=== PATIENT | female | born 1940 | race Caucasian/White ===

== ENCOUNTER 2017-10-31 05:48 | Inpatient (IN) | payer OTHER ==
[~2017-10-31] VITALS: Ht 162.6 cm; Wt 49.9 kg
[~2017-10-31 05:48] MED LIST: ACETAMINOPHEN-1 EAC1 PO; ACETAMINOPHEN325 M1 PO; ACETAMINOPHEN650 M5 PO; AMLODIPINE BESY10 MG PO; ASPIR 8181 M1 PO; ASPIRIN EC81 M1 PO; AUGMENTIN 875875 MG PO; CARVEDILOL3.125 MG PO; CELEXA 20 MG TA20 MG PO; COLACE100 MG PO; COREG6.25 MG PO; COUMADIN 1MG TAB1 M1 PO; COZAAR 50 MG TA50 M1; COZAAR 50 MG TA50 MG PO; ELIQUIS2.5 MG PO; EXCEDRIN CAPLE1 EACH PO; FERRO-TIME325 MG PO; GAS RELIEF40 MG/0.6 PO; IRON325 PO; LEXAPRO20 MG PO; LISINOPRIL5 MG PO; NORVASC; NORVASC2.5 MG PO; OMEPRAZOLE 20 M20 M1 PO; PACERONE 200 M200 M1 PO; PERCOCET 5-3251 EACH PO; POTASSIUM CHLO10 ME1 PO; POTASSIUM CHLORIDE; POTASSIUM99 M1 PO; PREDNISONE 10 M10 M1 PO; SIMETHICON CHEW80 MG PO; TRAZODONE; TRAZODONE 50 MG PO; VICKS NYQUIL C236 ML PO; VITAMIN D 5050000 I1 PO; VITAMIN D400 UNI1 PO; VITAMIN E400 UNIT PO; [UNRECOGNIZED DRUG - OTHER] PO
[2017-10-31 05:50] VITALS: BP 189/84
[2017-10-31] MEDS ORDERED: NORVASC2.5 MG PO (06:36)
[2017-10-31] MEDS ORDERED: OMEPRAZOLE 20 M20 M1 PO (06:38)
[2017-10-31 06:42] LABS: HEMATOCRIT 36.5 % (37.0-47.0); HEMOGLOBIN 12.1 gm/dL (12.0-15.0); MCH 28.3 pg (26.0-34.0); MCHC 33.2 g/dL (28.0-37.0); MPV 7.5 fl. (7.2-11.1); NUCLEATED RBCS 0 /100WBC; PLATELET COUNT* 131 thou/uL (150-400); RBC 4.29 mil/uL (4.20-5.00); RDW-CV 14.1 % (10.5-14.5); WBC 7.4 thou/uL (4.0-11.0)
[2017-10-31 06:52] LABS: INFLUENZA A ANTIGEN None Detected (None Detect); INFLUENZA B ANTIGEN None Detected (None Detect)
[2017-10-31 06:55] LABS: ANION GAP 8 mmol/L (7-16); BUN 16 mg/dL (7-18); CALCIUM 8.4 mg/dL (8.5-10.1); CHLORIDE 101 mmol/L (98-107); CO2 33 mmol/L (21-32); GLUCOSE 120 mg/dL (70-99); POTASSIUM 3.6 mmol/L (3.5-5.1); SODIUM 142 mmol/L (136-145)
[2017-10-31 07:01] LABS: ALBUMIN 3.5 g/dL (3.4-5.0); ALKALINE PHOSPHATASE 76 U/L (46-116); NT-PRO BRAIN NAT PEPTIDE 761 pg/mL (<300); SGOT 24 U/L (15-37); SGPT 23 U/L (30-65); TOTAL BILIRUBIN 0.4 mg/dL (<0.1-1.0); TOTAL PROTEIN 6.5 g/dL (6.4-8.2); TROPONIN-I LEVEL <0.06 ng/mL (<0.06)
[2017-10-31 07:15] LABS: ABSOLUTE EOSINOPHILS 0.1 thou/uL (0.0-0.7); ABSOLUTE LYMPHOCYTES 0.5 thou/uL (0.8-5.3); ABSOLUTE MONOCYTES 0.4 thou/uL (0.0-1.2); ABSOLUTE NEUTROPHILS 6.4 thou/uL (1.6-8.1); PLATELET ESTIMATE ADEQUATE
[2017-10-31 07:45] LABS: URINE BILIRUBIN NEGATIVE (Negative); URINE BLOOD 1+ (Negative); URINE CLARITY SL CLOUDY; URINE COLOR YELLOW; URINE GLUCOSE-RANDOM NEGATIVE (Negative); URINE KETONES NEGATIVE (Negative); URINE LEUKOCYTES-REFLEX 2+ (Negative); URINE NITRITE-REFLEX NEGATIVE (Negative); URINE PROTEIN NEGATIVE (Negative); URINE UROBILINOGEN 0.2 E.U./dl (0.2-1.0)
[2017-10-31 07:56] LABS: BACTERIA-REFLEX >30 Many /HPF (None Seen); CASTS None Seen /LPF (None Seen); CRYSTALS None Seen /LPF (None Seen); SQUAMOUS NONE SEEN /LPF (0-3); URINE RBC None Seen /HPF (0-2); URINE WBC-REFLEX >25 Many /HPF (0-5); WBC CLUMPS Moderate (None Seen)
--- NOTE | 2017-10-31 09:01 | NUR ---
pt returned to ed and returned toreconnectedto monitor
[2017-10-31 09:07] VITALS: BP 143/44
--- NOTE | 2017-10-31 09:20 | NUR ---
PATIENT ARRIVED ON UNIT AT 0920 FROM ED. ALERT AND ORIENTED X4. ADMISSION ASSESSMENT AND HISTORY COMPLETED AND CHARTED. VSS ON 2 LITERS 02. PATIENT HAS A PRODUCTIVE COUGH BUT DENIES ANY PAIN OR NAUSEA THIS SHIFT. IV SOLUMEDROL ADMINISTERED AND BREATHING TREATMENTS ADMINISTERED ORDERED. PATEINT HAS LOTS OF SUPPORTIVE FAMILY AT BEDSIDE TODAY AND IS CURRENTLY RESTING COMFORTABLY IN BED. HOURLY ROUNDS HAVE BEEN MAINTAINED. CALL LIGHT IS WITHIN REACH. NURSING WILL CONTINUE TO MONITOR.
[2017-10-31 09:30] VITALS: BP 150/69
--- NOTE | 2017-10-31 09:45 | EKG ---
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 Therapy: : 1940 Requested By: Beatris Palomares Order Number: [id number] MD: Red Rodriguez Measurements Intervals Savage Rate: 88 P: 0 OH: 152 QRS: -58 QRSD: 97 T: 84 QT: 387 QTc: 469 Interpretive Statements Sinus rhythm septal q waves noted Atrial premature complexes 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
[2017-10-31 15:44] VITALS: BP 144/73
[2017-10-31 21:15] VITALS: BP 169/75
[2017-10-31 23:46] VITALS: BP 147/66
[2017-11-01 03:30] VITALS: BP 184/92
[2017-11-01 04:41] LABS: ABSOLUTE LYMPHOCYTES 0.5 thou/uL (0.8-5.3); ABSOLUTE MONOCYTES 0.1 thou/uL (0.0-1.2); ABSOLUTE NEUTROPHILS 5.5 thou/uL (1.6-8.1); BASOPHILS 0.1 %; HEMATOCRIT 34.9 % (37.0-47.0); HEMOGLOBIN 11.8 gm/dL (12.0-15.0); LYMPHOCYTES 7.5 %; MCH 28.3 pg (26.0-34.0); MCHC 33.9 g/dL (28.0-37.0); MCV 83.6 fL (80.0-100.0); MONOCYTES 1.5 %; MPV 8.4 fl. (7.2-11.1); NUCLEATED RBCS 0 /100WBC; PLATELET COUNT* 135 thou/uL (150-400); POLYS 90.9 %; RBC 4.17 mil/uL (4.20-5.00); RDW-CV 13.9 % (10.5-14.5)
[2017-11-01 05:02] LABS: CALCIUM 8.9 mg/dL (8.5-10.1); CREATININE 0.9 mg/dL (0.6-1.3); MAGNESIUM 1.6 mg/dL (1.8-2.4); POTASSIUM 3.5 mmol/L (3.5-5.1)
--- NOTE | 2017-11-01 05:04 | NUR ---
PATIENT ALERT AND ORIENTED. ELEVATED BLOOD PRESSURE. HYDRAZALINE GIVEN, EFFECTIVE. ON 2L OF OXYGEN. UP SBA THE BATHROOM, GAIT UNSTEADY. TYLENOL GIVEN FOR A HEADACHE. PRODUCTIVE COUGH. SLEPT COMFORTABLY THROUGH THE NIGHT. HOURLY HOURLY ROUDNS. BED ALARM IN USE. NURSING WILL CONTINUE TO MONITOR.
[2017-11-01 05:20] VITALS: BP 128/65
[2017-11-01 08:04] VITALS: BP 157/68
--- NOTE | 2017-11-01 11:00 | NUR ---
SPOKE WITH PT. SHE WAS GRIMACING AND KEPT HER EYES CLOSED,ALTHOUGH ANSWERED MY QUETIONS. DAUGHTER SAID SHE WAS SOA. SHE LIVES WITH HER DAUGHTER,SANTANA AND SANTANA'S . SHE HAS HER OWN BEDROOM. SHE DOES NOT USE O2 OR ANY OTHER DME AT HOME. DAUGHTER SAID I FEEL LIKE YOU NEED TO WALK WITH A WALKER. PT.STATED I HAVE TOO MANY KNICK KNACKS IN MY ROOM AND A WALKER WOULD NOT FIT,ILL WALK WITH A CANE.SHE IS ALONE DURING THE DAY WHILE FAMILY WORKS. STILL DRIVES, ALTHOUGH 'MY KIDS DONT WANT ME TO.' DECLINES HOME HEALTH AT DISCHARGE. SHE SAID SHE DID NOT LIKE PEOPLE COMING INTO THE HOUSE. CM WILL FOLLOW.
[2017-11-01 11:56] VITALS: BP 152/61
[2017-11-01 15:58] VITALS: BP 163/59
--- NOTE | 2017-11-01 16:30 | NUR ---
ASSUMED CARE OF PATIENT AFTR MORNING REPORT. ALERT AND ORIENTED X4. VSS ON 2 LITERS 02. FLUIDS AND ANTIBIOTICS INFUSING ORDERED. RT HAS BEEN GIVING BREATHING TREATMENTS ORDERED. PATIENT HAS HAD SUPPORTIVE FAMILY AT BEDSIDE TODAY. PATIENT HAS HAD SOME COMPLAINTS OF A HEADACHE AND REQUESTED EXCEDRINE WHICH THE PHARMACY DOES NOT CARRY, TRAMADOL WAS ORDERED INSTEAD AND HAS GREGORIA SUCCESSFUL IN CONTROLLING HER HEADACHE PAIN. PATIENT IS RESTING COMFORTABLY IN BED AT THIS TIME. CALL LIGHT IS WITHIN REACH. HOURLY ROUNDS MAINTAINED. NURSING WILL CONTINUE TO MONITOR.
[2017-11-01 20:35] VITALS: BP 186/90
[2017-11-02 00:01] VITALS: BP 116/63
[2017-11-02 04:18] LABS: ABSOLUTE LYMPHOCYTES 0.7 thou/uL (0.8-5.3); ABSOLUTE MONOCYTES 0.7 thou/uL (0.0-1.2); ABSOLUTE NEUTROPHILS 9.1 thou/uL (1.6-8.1); HEMATOCRIT 32.8 % (37.0-47.0); LYMPHOCYTES 6.9 %; MCH 28.3 pg (26.0-34.0); MCHC 33.4 g/dL (28.0-37.0); MCV 84.6 fL (80.0-100.0); MONOCYTES 6.5 %; MPV 8.1 fl. (7.2-11.1); NUCLEATED RBCS 0 /100WBC; PLATELET COUNT* 145 thou/uL (150-400); POLYS 86.6 %; RBC 3.88 mil/uL (4.20-5.00); RDW-CV 14.2 % (10.5-14.5); WBC 10.5 thou/uL (4.0-11.0)
--- NOTE | 2017-11-02 04:22 | NUR ---
PATIENT ALERT AND ORIENTED, FORGETFUL AT TIMES. HYDRAZALINE GIVEN X 1, EFFECTIVE. OTHER VITALS STABLE. ON 2L OF OXYGEN. UP SBA TO BATHROOM. PRODUCTIVE COUGH. SOB WITH EXERTION. FLUIDS INFUSING PER ORDER. HOURLY ROUNDS. BED ALARM IN USE. NURSING WILL CONTINUE TO MONITOR.
[2017-11-02 05:43] LABS: CALCIUM 8.4 mg/dL (8.5-10.1); CREATININE 0.8 mg/dL (0.6-1.3); POTASSIUM 3.8 mmol/L (3.5-5.1); TOTAL BILIRUBIN 0.2 mg/dL (<0.1-1.0)
[2017-11-02 05:44] LABS: ALBUMIN 2.9 g/dL (3.4-5.0); TOTAL PROTEIN 5.5 g/dL (6.4-8.2)
[2017-11-02 08:00] VITALS: BP 172/87
[2017-11-02 10:35] VITALS: BP 125/54
--- NOTE | 2017-11-02 12:51 | CON ---
[facility] [address] [place] [address] CONSULTATION Name: LAMONT STEVEN Room: [address] IN M.R.#: [id number] Admission: 10/31/17 Attend Phys: Oleg Oliver MD Discharge: Date of : 36 Report #: [id number] THIS REPORT FOR: //name// CC: Oleg Jose DATE OF SERVICE: 11/02/2017 TYPE OF REPORT: Pulmonary consultation. IDENTIFICATION DATA: A 77-year-old female. ATTENDING PHYSICIAN: Oleg Oliver M.D. INDICATION FOR CONSULTATION: Right lower lobe infiltrate, possible lung mass. HISTORY OF PRESENT ILLNESS: The patient is a 77-year-old female who has had prior COPD at home. She has not been oxygen or steroid dependent, has refused and not really used any inhalers or nebulizers in the past. A 3-4 day history of increasing cough, fever, chills and wheezing. She has not traveled anywhere, but she has had ill contacts over the last couple of days. The patient does have problems with drinking liquids, appears intermittently aspirating with liquids, does not perform a chin tuck. She has always been thin and frail according to the daughter and states her weight has been stable at about 110 pounds. Normally, she does not have much of a cough at home. She denies any hemoptysis or chest pain. She still states she is short of breath now and she gets up and walks. PAST MEDICAL HISTORY: COPD, again not oxygen or steroid dependent; some generalized weakness; pneumonia currently and bronchitis. She was treated with Augmentin, I think, by Dr. Michelle Jose, her primary care physician. ALLERGIES: She has no known medical allergies. MEDICATIONS: Her other outpatient medications included omeprazole 20 mg daily, trazodone 50 mg at bedtime, vitamin E 400 units daily, Lexapro 20 mg daily, Norvasc 2.5 mg daily, carvedilol 6.25 mg b.i.d. and aspirin 81 mg daily. She was on a prednisone taper 10 mg a day and then on Augmentin and she has finished both of those. Lisinopril has been discontinued because of the cough. Currently in the hospital, she is on prednisone 40 mg daily and Rocephin and Zithromax. PAST SURGICAL HISTORY: She has had tonsillectomy, aortic valve repair 07/31/2013, left side lumpectomy for benign lesions, impacted about in July 2013, remote history [place] [address] CONSULTATION Name: TENISHALAMONT J Room: [address] IN ..#: [id number] Admission: 10/31/17 Attend Phys: Oleg Oliver MD Discharge: Date of : 36 Report #: [id number] SOCIAL HISTORY: She is a 25-zygf-eutv smoker. She smoked for 30 years, probably from the age of 18 to the age of 48 and she quit about 28 years ago. She was 2 packs a day, has a 30-sxhx-pnvu history of smoking. Denies any alcohol or illicit drug use. Lives at home with her and her daughter. Her adult daughter seems quite informed and involved with her care. FAMILY HISTORY: Negative for premature cardiopulmonary disease. REVIEW OF SYSTEMS: A 14-point review of systems: CONSTITUTIONAL: Denies any weight loss. Has had some fever and chills at home. RESPIRATORY: Cough with wheezing and COPD and dyspnea. CARDIOVASCULAR: She denies chest pain or palpitations. GASTROINTESTINAL: Some intermittent nausea and choking on liquids. GENITOURINARY: Has been negative. MUSCULOSKELETAL: Denies focal pain. ENDOCRINE: No diabetes or thyroid. LYMPHATIC: No bruising or bleeding. SKIN: No rashes or lesions. NEUROLOGICAL: Some weakness. PHYSICAL EXAMINATION: GENERAL: A 77-year-old female in mild distress on 2 liters. VITAL SIGNS: Stable. Blood pressure is 125/54 on no pressors, heart rate is 84, respirations were 20 and slightly labored. She has been afebrile, temperature is 36.4. She is 5 feet 3 inches tall, weight 50 kilograms or 110-112 pounds and her BMI is 19. HEENT: Mucous membranes are moist. NECK: No increase in jugular venous pressure. No cervical or supraclavicular adenopathy. CHEST: Shows posteriorly bibasilar rhonchi, crackles and expiratory wheeze, right lower lobe worse than left lower lobe. CARDIOVASCULAR: Shows regular rate and rhythm with a heart rate of 84. I do not hear any aortic outflow murmur. Previous median sternotomy scar noted. ABDOMEN: Soft, without masses or megaly. EXTREMITIES: No calf tenderness. No cyanosis, clubbing or edema. NEUROLOGICAL: Weak but intact. LABORATORY DATA: Influenza was negative. Hemoglobin is 11; white count is 10,500 this morning and platelet count 145,000. Normal differential. Sodium is 140, potassium is 3.8, BUN is 21, creatinine 0.8 and glucose is 109. LFTs within normal limits. Albumin is slightly low at 2.9. Lple-iax-PJB is slightly elevated at 2472. Serology is negative for influenza A or B swabs and were negative. Coags: Her D-dimer is only 1.3. [address] [address] CONSULTATION Name: LAMONT STEVEN Room: [address] IN M.R.#: [id number] Admission: 10/31/17 Attend Phys: Oleg Oliver MD Discharge: Date of : 36 Report #: [id number] IMPRESSION: 1. Right lower lobe pneumonia, could be related to aspiration with liquids. No evidence for lung carcinoma on the chest x-ray. She has a 9 mm right upper lobe nodule, which appears ill-defined. 2. Chronic obstructive pulmonary disease, probably moderate, needs better therapy as an outpatient. 3. Fatigue. 4. Hypertension. 5. Previous aortic valve replacement. PLAN: Continue therapy. She was on p.o. prednisone. I am going to add 6 doses of IV Solu-Medrol to see him get her out of her bronchospasm and add some oral albuterol tablets and oral montelukast. She may need home nebulizer treatments. No evidence of lung cancer at this time and I think it is all right lower lobe pneumonia, but she will certainly need a followup chest x-ray in a day or two and follow this up to completion. If not, she needs another CAT scan in 2 months to make sure that the lung bases are clear. If not, she may require outpatient fiberoptic bronchoscopy. Discussed this with the family, will need followup. Continue on current medical therapy as outlined above and hopefully, she will have some improvement, but she will probably need another 24-48 hours inpatient therapy. Thanks again for allowing us to participate in this lady's care. <ELECTRONICALLY SIGNED> By: Collins Peña MD 11/02/17 1251 [id number] [id number] Peña MD /nt
[2017-11-02 16:16] VITALS: BP 140/65
--- NOTE | 2017-11-02 16:17 | NUR ---
ASSUMED CARE OF PATIENT AFTER REPORT THIS MORNING. PATIENT AWAKE, ALERT, AND ORIENTED APPROPRIATELY. PHYSICAL ASSESSMENT COMPLETED AND CHARTED. COMPLAINED OF PAIN THIS SHIFT. GIVEN PRN AND SCHEDULED MEDICATIONS, SEE EMAR FOR DOCUMENTATION. VITAL SIGNS STABLE. OXYGEN SATURATION WITHIN NORMAL LIMITS ON 2 LPM PER NASAL CANULA. ATTEMPTED TO TITRATE TO ROOM AIR BUT WITH ACTIVITY OXYGEN IS NECESSARY. OXYGEN SATURATION DECREASES WITH ACTIVITY. TRANSFERS AND AMBULATES WITH ASSISTANCE FROM STAFF. USES CALL LIGHT APPROPRIATELY. PATIENT DENIES NEEDS AT THIS TIME. CALL LIGHT WITHIN REACH. NURSING WILL CONTINUE TO MONITOR.
[2017-11-02 20:00] VITALS: BP 177/90
[2017-11-03] VITALS: BP 136/59
--- NOTE | 2017-11-03 05:35 | NUR ---
ALERT AND ORIENTED X4. UP WITH STAND BY ASSIST TO BATHROOM. O2 SAT 85% ON ROOM AIR. O2 SAT 96% ON O2 AT 2L/NC. CONTINUES TO RECEIVE BREATHING TREATMENTS IV STERIODS AND IV ANTIBIODICS. CALL LIGHT WITHIN REACH. BED ALARM ON.
[2017-11-03 09:00] VITALS: BP 170/91
[2017-11-03 16:17] VITALS: BP 165/82
--- NOTE | 2017-11-03 20:57 | NUR ---
ASSUMED CARES OF PT AT 0700. PT IN BED, BED IN LOW LOCKED POSITION. CALL BUTTON AND PERSONAL ITEMS IN PT REACH. FALL PRECAUTIONS IN PLACE. PT A&O X4, VSS ON 2L O2, OCC. HYPERTENSIVE. AFEBRILE, PERRLA, NON PRODUCTIVE COUGH. PT UP SBA TO BATHROOM. PT VERY MODEST AND SHY. PT DENIES PAIN THIS SHIFT. LUNGS WHEEZY ON EXHALATION PER AUSCULTATION. SKIN INTACT, NO EDEMA NOTED. MEDS TAKEN WELL PO. POOR APPETITE AND NUTRITIONAL INTAKE. HOURLY ROUNDING COMPLETED. REPORT TO BAILING MACHINE OPERATOR FOR CONTINUED CARES. PT PROGRESSING TOWARDS GOAL. HR IRREGULAR/AFIB PER AUSCULTATION. CONSULTS PULMONARY. PT REMAINS STABLE AT SHIFT CHANGE.
[2017-11-03 21:00] VITALS: BP 172/71
[2017-11-04] VITALS: BP 148/61
--- NOTE | 2017-11-04 05:13 | NUR ---
ALERT AND ORIENTED X4. UP WITH STAND BY ASSISTANCE TO BATHROOM. ON SCHEDULED TRAMADOL. DENIES PAIN WHEN ASKED. REMAINS ON O2 AT 1L/NC TO KEEP O2 SAT 96%. LUNG SOUNDS COARSE WITH FAINT WHEEZES. CONTINUES TO RECEIVE BREATHING TREATMENTS AND IV ANTIBIODICS. CALL LIGHT WITHIN REACH.
[2017-11-04 08:06] VITALS: BP 195/89
--- NOTE | 2017-11-04 09:44 | NUR ---
ASSUMED CARES OF PT AT 0700 WITH SHIFT CHANGE REPORT. PT IN BED, BED IN LOW LOCKED POSITION. FALL PRECAUTIONS IN PLACE. PT A&O X4, VSS ON 1L O2 NC, OCC HYPERTENSIVE IN MORNINGS BEFORE MEDS. AFEBRILE, PERRLA, SKIN INTACT, UP SBA TO BATHROOM. LFA IV SALINE LOCKED, IV ABT TOLERATED, NO AVR. PT REPORTS HEADACHE THIS MORNING ROUNDS, PAIN MEDS ADMINISTERED, EFFECTIVENESS TO BE EVALUATED. PT REFUSES TO HAVE BM AT HOSPITAL, WANTS TO WAIT TILL SHE GOES HOME, DAY 5 NO BM, ABD SOUNDS ACITVE 4 QUAD. SOFT TO PALPATE, NO NAUSEA REPORTED. HOURLY ROUNDING CONTINIUES. HR IRREGULAR/AFIB, LUNGS COARSE/WHEEZES ON EXHALATION. O2 1L 97% THIS MORNING ROUNDS. PT PROGRESSING TOWARDS GOAL. WILL CONTINUE TO MONITOR PT PROGRESS AND STATUS.
[2017-11-04 15:43] VITALS: BP 166/93
[2017-11-04 20:00] VITALS: BP 185/82
--- NOTE | 2017-11-04 20:06 | NUR ---
this nurse assumes care of pt at 1930, pt is alert and oriented, visiting with family, pt complains of headache, rates pain 6/, denies n/v reports eating a little bit of her dinner, pt has dietary supplements in refrigerator that family provided, pt reports that she is SOA allthe time, breathing is nonlaborded at this time, family remains at bedside, bed in lowest position, call light within reach
--- NOTE | 2017-11-04 20:45 | NUR ---
REPORT TO STOREROOM CLERK FOR CONTINUED CARES. PT REMAINS A&O X4, OCC. FORGETFUL. PT UNSTABLE AMBULATORY, NEEDS SBA. VERY UNCONFIDENT OF SELF. REFUSES TO HAVE BM IN HOSPITAL, STATES ITS TOO EMBARASSING. VSS NOW ON RA. OCC HYPERTENSIVE, ASYMPTOMATIC. LUNGS REMAIN WHEEZY IN LL BILATERALLY. HOURLY ROUNDING COMPLETED. PT HAS VERY POOR DIET, NOT CONSUMING MUCH OF ANY MEAL. ENCOURAGED TO EAT MORE, REFUSES. FALL PRECAUTIONS REMAIN ACTIVE. NURSE CONCERNED ABOUT FAMILY DYNAMICS R/T PT VERY UNCONFIDENT, STATES SHE IS UGLY, VERY MODEST AND THE POOR EATING HABITS.
[2017-11-05 00:26] VITALS: BP 122/69
--- NOTE | 2017-11-05 05:10 | NUR ---
pt rests off and on throughout the night, voices no complaints/concerns, pts lung sounds remain coarse throughout, up to bathroom with standby assist, bed alarm on
[2017-11-05 07:45] VITALS: BP 181/93
[2017-11-05 11:06] VITALS: BP 181/93
--- NOTE | 2017-11-05 12:02 | NUR ---
PT.TO BE DISCHARGED TODAY. PT.WILL EITHER AGREE TO HOME HEALTH OR OUTPT.THERAPY. SON IN LAW AT BEDSIDE. CM RECOMMENDED HH UNTIL PT.A BIT STRONGER. PT.AGREEABLE, 'IF IT'S THE ONLY WAY I CAN GO HOME.' SHE HAS A FRIEND,SAMIR, THAT WORKS FOR A HOME HEALTH AGENCY. SHE WANTS TO USE THEM. SACHIN CALLED SAMIR AT NUMBER GIVEN. SHE SAID SHE WORKS FOR [employer]. SPOKE WITH [facility] AND FAXED ORDERS,H&P,FACE SHEET AND FACE 2 FACE FORM. SHE SAID THEY CAN ACCEPT PT.TO SERVICE. SON IN LAW SAID THEY HAVE A NEIGHBOR THAT IS AN RT AND HE HAS SAID HE CAN CHECK IN ON PT.AT HOME. PER SATURATIONS DONE ON 11/04 PT.DOESN'T QUALIFY FOR HOME O2. ORDER FOR NEBULIZER RECEIVED AND FAXED TO [facility]. SHE WILL HAVE IT DELIVERED TO PT.'S HOME. EXPLAINED ALL TO PT.
[2017-11-05] MEDS ORDERED: AZITHROMYCIN500 MG PO (15:11)
[2017-11-05] MEDS ORDERED: PREDNISONE 10 M10 MG PO (15:51)
[2017-11-05] MEDS ORDERED: VENTOLIN HFA 1818 GM INH (15:52)
[2017-11-05] MEDS ORDERED: DUONEB 2.5-0.5 M3 ML INH (15:54)
[2017-11-05] MEDS ORDERED: AZITHROMYCIN 2250 MG PO (15:56)
[2017-11-05 15:58] VITALS: BP 181/93
[2017-11-05] MEDS ORDERED: CEFPODOXIME PR200 M1 PO (15:58)
[2017-11-05] MEDS ORDERED: SINGULAIR 10 MG10 M1 PO (16:14)
[2017-11-05 16:33] VITALS: BP 181/93
--- NOTE | 2017-11-05 16:43 | NUR ---
PATIENT LEFT UNIT AT 1645. ALERT AND ORIENTED X4. UP WITH MIN ASSIST WITH WALKER AND GAIT BELT. IV DC'D. DENIES PAIN AND NAUSEA. TOLERATING DIET. ALL PERSONAL ITEMS LEFT WITH PATIENT. DISCHARGE INSTRUCTIONS, PRESCRIPTIONS, AND NEW MEDICATION INFORMATION SENT WITH PATIENT. VSS ON ROOM AIR. HOURLY ROUNDS HAVE BEEN MAINTAINED THROUGHOUT SHIFT. LEFT WITH SON VIA CAR.
[2017-11-05 17:03] VITALS: BP 181/93
--- NOTE | 2017-11-07 19:10 | CON ---
[address] [address] CONSULTATION Name: LAMONT STEVEN Room: [address] IN M.R.#: [id number] Admission: 10/31/17 Attend Phys: Oleg Oliver MD Discharge: 11/05/17 Date of : 36 Report #: [id number] THIS REPORT FOR: //name// CC: Oleg Jose DATE OF SERVICE: 11/04/2017 HISTORY OF PRESENT ILLNESS: This is a 77-year-old female patient who is not able to provide any good history. She presented to Emergency Room with upper respiratory tract symptoms, but now is complaining of generalized weakness and some ataxia. She does not think much is wrong with her. She said she has used walker in the past and she may be somewhat more weaker. She does not think her cognition is affected. She thinks all her symptoms started spontaneously and there is no associated paralysis. REVIEW OF SYSTEMS: Indicate that this patient has a history of atrial fibrillation. She also had some valve problem. She indicates she used to be on anticoagulation, but she is not on anticoagulation now. The patient is admitted with pneumonia. There was some question of cancer, but consults from Pulmonary indicate that she does not have any cancer. She herself feels she is doing better, but nurses do not believe this patient is as strong as she thinks she is. Review of system is positive for CHF, atrial fibrillation, mitral valve repair, COPD. She denies any prior history of stroke or seizure. She believes that her vision and hearing looks adequate. She is not complaining of any active chest pain or abdominal pain or any symptom. She is not having any new musculoskeletal, constitutional, dermatological, hematological, psychiatric, throat, allergic symptom associated with present symptomatology. No endocrine symptom is associated with present symptomatology. PAST MEDICAL HISTORY: Negative for stroke. FAMILY HISTORY: Negative for early age stroke. SOCIAL HISTORY: She indicates she used to smoke, but does not smoke now. She does not drink any alcohol. PHYSICAL EXAMINATION: Indicate she is alert. She is responsive. She can follow simple commands. Her memory is diminished. Her fund of knowledge is diminished. Her speech looks intact. Cranial nerve examination 2-12 is unremarkable. Her strength, sensation, reflexes and tones are symmetrical. She is somewhat weak in all 4 extremities. Her dffvfa-nu-ugjw looks unremarkable. There is no papilledema. There is no meningeal sign. There is no thyroid mass. There is no carotid bruit. Pulses are somewhat difficult to feel, but there is no edema, cyanosis or jaundice. Heart is irregular but apparently she has a history of atrial fibrillation. She does have some rhonchi on either [place], [place] [address] CONSULTATION Name: LAMONT STEVEN Room: [address] IN M.R.#: [id number] Admission: 10/31/17 Attend Phys: Oleg Oliver MD Discharge: 11/05/17 Date of : 36 Report #: [id number] does not appear to be in marked respiratory distress. She is an average built individual who does not have any dysmorphic features of eyes, ears and face. Her vision and hearing looks adequate. Blood pressure is 166/93, respirations 16, pulse 92, temperature is 97.5. LABORATORY DATA: Indicate sodium is normal. Her B12 and TSH are okay. She did have a CT scan of the head that did not show any acute pathology. IMPRESSION: Generalized weakness. I will talk to physical therapy to see how she is working with them. This patient has atrial fibrillation and is not anticoagulated. Therefore, she is on a high risk of having a stroke. We can try to do an MRI to see if there is any pathology there. She does not think anything wrong with that, so I think I need to talk to the family to see how much different she is compared to the baseline. RECOMMENDATIONS: 1. I will talk to the family. 2. We may consider doing MRI in this patient. 3. I will also talk to physical therapy and yourself to see how she is doing and how much different she is and then decide about further management. I discussed all of it with the patient, but the patient as indicated above, does not think much is wrong with her and we need to get history from other sources and discussed with you. I did discuss with her that she will be staying here and she is agreeable with that. Thank you very much for this referral. <ELECTRONICALLY SIGNED> By: Uli Christine MD 11/07/17 1910 1635 1921Pmelissa Christine MD /marii
== END 2017-11-05 16:45 | disposition home health service (06) | DRG 177 ==
LOC: M.ERS 05:48 → M.TBA-ER 07:43 → M.ORTHSURG 07:43
PROVIDERS: Emergency Medicine; ADMIT Internal Medicine
DX: J69.0 Pneumonitis due to inhalation of food and vomit (principal); E43 Unspecified severe protein-calorie malnutrition; J96.00 Acute respiratory failure, unspecified whether with hypoxia or hypercapnia; J44.1 Chronic obstructive pulmonary disease with (acute) exacerbation; J44.0 Chronic obstructive pulmonary disease with (acute) lower respiratory infection; I50.42 Chronic combined systolic (congestive) and diastolic (congestive) heart failure; Z68.1 Body mass index [BMI] 19.9 or less, adult; I48.91 Unspecified atrial fibrillation; I11.0 Hypertensive heart disease with heart failure; R27.0 Ataxia, unspecified; Z79.899 Other long term (current) drug therapy; Z79.82 Long term (current) use of aspirin; Z90.89 Acquired absence of other organs; Z87.891 Personal history of nicotine dependence; Z87.01 Personal history of pneumonia (recurrent); Z95.2 Presence of prosthetic heart valve

== ENCOUNTER → 2017-11-25 | Outpatient (CLI) | payer OTHER ==
[~2017-11-25] MED LIST changes: +AZITHROMYCIN 2250 MG PO; +AZITHROMYCIN500 MG PO; +CEFPODOXIME PR200 M1 PO; +DUONEB 2.5-0.5 M3 ML INH; +PREDNISONE 10 M10 MG PO; +SINGULAIR 10 MG10 M1 PO; +VENTOLIN HFA 1818 GM INH
--- NOTE | 2017-11-25 18:43 | 2DMMODE ---
[place] [address] 2 D/M-MODE ECHOCARDIOGRAM Name: LAMONT STEVEN Room: [facility]#: [id number] Admission: 11/25/17 Attend Phys: Maria L Goff, Discharge: Date of : 36 Date of Service: 11/25/17 1842 Report #: [id number] THIS REPORT FOR: //name// APPROVED REPORT Study performed: 11/25/2017 13:17:30 EXAM: Comprehensive 2D, Doppler, and color-flow Echocardiogram Patient Location: Out-Patient Status: routine BSA: 1.53 HR: 84 bpm BP: 150/80 mmHg Other Information Study Quality: Good Indications Aortic Insuff. 2D Dimensions LVEF(%): 86.64 (>50%) IVSd: 11.30 (7-11mm) LVOT Diam: 20.13 (18-24mm) LVDd: 42.76 mm PWd: 10.46 (7-11mm) Ascending Ao: 31.65 (22-36mm) LVDs: 18.86 (25-40mm) Aortic Root: 26.11 mm Chanel's LVEF: 86.64 % Volumes Left Atrial Volume (Systole) LA ESV Index: 19.90 mL/m2 Aortic Valve AoV Peak Jimbo.: 1.05 m/s AO Peak Gr.: 4.37 mmHg LVOT Max P.95 mmHg AO Mean Gr.: 2.21 mmHg LVOT Mean P.52 mmHg LVOT Max V: 0.86 m/s AO V2 VTI: 17.99 cm LVOT Mean V: 0.57 m/s JESSIE (VTI): 3.26 cm2 LVOT V1 VTI: 18.42 cm AI Pope: 2.76 m/s2 AI PHT: 449.61 [place] [address] 2 D/M-MODE ECHOCARDIOGRAM Name: LAMONT STEVEN Room: [facility]#: [id number] Admission: 11/25/17 Attend Phys: Maria L Goff, Discharge: Date of : 36 Date of Service: 11/25/17 1842 Report #: [id number] E/A Ratio: 2.63 MV Decel. Time: 220.34 ms MV E Max Jimbo.: 1.23 m/s MV PHT: 63.90 ms MVA (PHT): 3.44 cm2 TDI E/Lateral E': 12.30 E/Medial E': 13.67 Medial E' Jimbo.: 0.09 m/s Lateral E' Jimbo.: 0.10 m/s Pulmonary Valve PV Peak Jimbo.: 0.68 m/s PV Peak Gr.: 1.83 mmHg Tricuspid Valve TR Peak Gr.: 31.52 mmHg RVSP: 36.52 mmHg Left Ventricle The left ventricle is normal size. There is normal LV segmental wall motion. Moderate concentric left ventricular hypertrophy. Left ventricular systolic function is normal. The left ventricular ejection fraction is within the normal range. LVEF is 55-60%. This study is not technically sufficient to allow evaluation of the LV diastolic function due to atrial fibrillation. Right Ventricle The right ventricle is normal size. The right ventricular systolic function is normal. Atria The left atrium size is normal. The right atrium size is normal. Aortic Valve Aortic valve is mildly calcified. Mild to moderate aortic regurgitation. There is no aortic valvular stenosis. Mitral Valve Mitral Valve repair Trace mitral regurgitation. No evidence of mitral valve stenosis. Tricuspid Valve The tricuspid valve is normal in structure. Mild tricuspid regurgitation. The RVSP is _36.5 mmHg[place] [address] 2 D/M-MODE ECHOCARDIOGRAM Name: LAMONT STEVEN Room: [facility]#: [id number] Admission: 11/25/17 Attend Phys: Maria L Goff, Discharge: Date of : 36 Date of Service: 11/25/17 1842 Report #: [id number] The pulmonary valve is normal in structure. There is no pulmonic valvular regurgitation. Great Vessels The aortic root is normal in size. IVC is normal in size and collapses with >50% inspiration Pericardium There is no pericardial effusion. <Conclusion> The left ventricle is normal size. Moderate concentric left ventricular hypertrophy. Left ventricular systolic function is normal. The left ventricular ejection fraction is within the normal range. LVEF is 55-60%. The right ventricle is normal size. The left atrium size is normal. Aortic valve is mildly calcified. Mild to moderate aortic regurgitation. There is no aortic valvular stenosis. Mitral Valve repair Trace mitral regurgitation. No evidence of mitral valve stenosis. The tricuspid valve is normal in structure. Mild tricuspid regurgitation. The RVSP is _36.5 mmHg. There is no pericardial effusion. There is normal LV segmental wall motion. <ELECTRONICALLY SIGNED> By: Hayes Martinez MD, FACC 11/25/171841 41 [id number] Hayes Martinez MD, FACC /INF
== END ==
LOC: M.CRD 13:00
DX: I08.2 Rheumatic disorders of both aortic and tricuspid valves (principal); I70.0 Atherosclerosis of aorta; J44.1 Chronic obstructive pulmonary disease with (acute) exacerbation; I42.9 Cardiomyopathy, unspecified

== ENCOUNTER → 2018-08-25 | Outpatient (CLI) | payer OTHER | LOC: M.ULTRA 13:00 | DX: M79.661 Pain in right lower leg (principal); M79.662 Pain in left lower leg ==

== ENCOUNTER 2018-11-12 17:37 | Emergency (ER) | payer OTHER ==
[~2018-11-12] VITALS: Ht 165.1 cm; Wt 51.3 kg
[2018-11-12 18:19] LABS: HEMATOCRIT 35.2 % (37.0-47.0); HEMOGLOBIN 11.6 gm/dL (12.0-15.0); MCH 27.7 pg (26.0-34.0); MCHC 32.9 g/dL (28.0-37.0); MCV 84.2 fL (80.0-100.0); MPV 8.5 fl. (7.2-11.1); NUCLEATED RBCS 0 /100WBC; PLATELET COUNT* 146 thou/uL (150-400); RBC 4.19 mil/uL (4.20-5.00); RDW-CV 13.6 % (10.5-14.5); WBC 11.1 thou/uL (4.0-11.0)
[2018-11-12 18:24] LABS: PROTIME 10.7 Seconds (9.20-11.50)
[2018-11-12 18:32] LABS: ANION GAP 6 mmol/L (7-16); BUN 18 mg/dL (7-18); CALCIUM 8.5 mg/dL (8.5-10.1); CHLORIDE 100 mmol/L (98-107); CO2 34 mmol/L (21-32); GLUCOSE 144 mg/dL (70-99); POTASSIUM 3.9 mmol/L (3.5-5.1); SODIUM 140 mmol/L (136-145); TROPONIN-I LEVEL <0.06 ng/mL (<0.06)
[2018-11-12 18:34] LABS: ALBUMIN 3.9 g/dL (3.4-5.0); ALKALINE PHOSPHATASE 110 U/L (46-116); NT-PRO BRAIN NAT PEPTIDE 979 pg/mL (<300); SGOT 40 U/L (15-37); SGPT 38 U/L (30-65); TOTAL BILIRUBIN 0.4 mg/dL (<0.1-1.0); TOTAL PROTEIN 6.9 g/dL (6.4-8.2)
[2018-11-12 19:00] LABS: ABSOLUTE EOSINOPHILS 0.1 thou/uL (0.0-0.7); ABSOLUTE LYMPHOCYTES 0.3 thou/uL (0.8-5.3); ABSOLUTE MONOCYTES 0.6 thou/uL (0.0-1.2); ABSOLUTE NEUTROPHILS 10.1 thou/uL (1.6-8.1); PLATELET ESTIMATE ADEQUATE
[2018-11-12 19:02] LABS: INFLUENZA A ANTIGEN None Detected (None Detect); INFLUENZA B ANTIGEN None Detected (None Detect)
[2018-11-12 19:43] LABS: URINE BILIRUBIN NEGATIVE (Negative); URINE BLOOD 2+ (Negative); URINE CLARITY CLEAR; URINE COLOR YELLOW; URINE GLUCOSE-RANDOM NEGATIVE (Negative); URINE KETONES NEGATIVE (Negative); URINE LEUKOCYTES-REFLEX NEGATIVE (Negative); URINE NITRITE-REFLEX NEGATIVE (Negative); URINE PROTEIN NEGATIVE (Negative); URINE UROBILINOGEN 0.2 E.U./dl (0.2-1.0)
[2018-11-12 19:58] LABS: BACTERIA-REFLEX None Seen /HPF (None Seen); CASTS None Seen /LPF (None Seen); CRYSTALS None Seen /LPF (None Seen); SQUAMOUS NONE SEEN /LPF (0-3); URINE RBC 0-2 Rare /HPF (0-2); URINE WBC-REFLEX 0-5 Rare /HPF (0-5)
[2018-11-12] MEDS ORDERED: NORCO 5-325 TA1 EACH PO (20:31)
[2018-11-12 21:10] VITALS: BP 130/55
--- NOTE | 2018-11-13 17:02 | EKG ---
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: JEFFERY : 1940 Requested By: Peter Alford Order Number: [id number] MD: Martir Cabrera Measurements Intervals [place] Rate: 95 P: 80 MD: 169 QRS: -63 QRSD: 97 T: 98 QT: 354 QTc: 445 Interpretive Statements Sinus arrhythmia Left anterior fascicular block Nonspecific repol abnormality, diffuse leads, consider ischemia Compared to ECG 10/31/2017 05:53:41 Early repolarization now present Sinus rhythm no longer present Q waves no longer present Atrial premature complex(es) no longer present Right bundle-branch block no longer present T-wave abnormality no longer present Electronically Signed On 11-13-2018 17:02:30 CDT by Martir Cabrera [email or web address] <ELECTRONICALLY SIGNED> By: Martir Cabrera MD, FAC 11/13/18 1702 1817 181 Martir Cabrera MD, [facility] /EPI
== END 2018-11-12 21:10 | disposition home or self-care (01) ==
LOC: M.ERS 17:37
PROVIDERS: Emergency Medicine Emergency Medical Services
DX: R53.1 Weakness (principal); M54.5 Low back pain; I48.91 Unspecified atrial fibrillation; I11.0 Hypertensive heart disease with heart failure; J42 Unspecified chronic bronchitis; I50.42 Chronic combined systolic (congestive) and diastolic (congestive) heart failure; Z87.891 Personal history of nicotine dependence; Z90.89 Acquired absence of other organs; Z90.12 Acquired absence of left breast and nipple

== ENCOUNTER 2018-11-14 05:41 | Inpatient (IN) | payer OTHER ==
[~2018-11-14] VITALS: Ht 165.1 cm; Wt 46.7 kg
[~2018-11-14 05:41] MED LIST changes: +NORCO 5-325 TA1 EACH PO
[2018-11-14 05:47] VITALS: BP 132/58
[2018-11-14 06:13] LABS: HEMATOCRIT 34.1 % (37.0-47.0); HEMOGLOBIN 11.3 gm/dL (12.0-15.0); MCH 27.9 pg (26.0-34.0); MCHC 33.1 g/dL (28.0-37.0); MCV 84.4 fL (80.0-100.0); MPV 8.3 fl. (7.2-11.1); NUCLEATED RBCS 0 /100WBC; PLATELET COUNT* 136 thou/uL (150-400); RBC 4.05 mil/uL (4.20-5.00); RDW-CV 13.3 % (10.5-14.5); WBC 10.3 thou/uL (4.0-11.0)
[2018-11-14 06:20] LABS: APTT 28.2 Seconds (25.0-31.3); INR 1.1; PROTIME 11.1 Seconds (9.20-11.50)
[2018-11-14 06:27] LABS: ANION GAP 6 mmol/L (7-16); BUN 18 mg/dL (7-18); CHLORIDE 99 mmol/L (98-107); CO2 33 mmol/L (21-32); GLUCOSE 136 mg/dL (70-99); POTASSIUM 4.3 mmol/L (3.5-5.1); SODIUM 138 mmol/L (136-145); TROPONIN-I LEVEL <0.06 ng/mL (<0.06)
[2018-11-14 06:32] LABS: ALBUMIN 3.6 g/dL (3.4-5.0); ALKALINE PHOSPHATASE 103 U/L (46-116); NT-PRO BRAIN NAT PEPTIDE 2262 pg/mL (<300); SGOT 42 U/L (15-37); SGPT 50 U/L (30-65); TOTAL BILIRUBIN 0.7 mg/dL (<0.1-1.0); TOTAL PROTEIN 7.3 g/dL (6.4-8.2)
[2018-11-14 07:55] LABS: ABSOLUTE EOSINOPHILS 0.2 thou/uL (0.0-0.7); ABSOLUTE LYMPHOCYTES 0.6 thou/uL (0.8-5.3); ABSOLUTE MONOCYTES 0.2 thou/uL (0.0-1.2); ABSOLUTE NEUTROPHILS 9.3 thou/uL (1.6-8.1)
[2018-11-14 07:56] LABS: PLATELET ESTIMATE ADEQUATE
[2018-11-14 08:00] VITALS: BP 135/46
[2018-11-14 08:24] VITALS: BP 135/48
--- NOTE | 2018-11-14 09:00 | NUR ---
PT ARRIVED ON THE UNIT AT 0835. REPORT TAKEN FROM RN. PT ASSESSED AND PUT ON CARDIAC MONITER TRACING AFIB. PT IS A&O. VSS WNL. PT IS AFEBRILE. PT HAD BOTH FLUE AND PNEU SHOT THIS SEASON. DAUGHTER HAS DPOA PAPERS AT HOME AND IS TO BRING IN FOR NOTORIZATION. PT PUT ON FALL PRECAUTIONS PER FACILITY PROTOCOL. SCDS ARE ON. SHE IS ON 2L O 02. PTS DAUGHTER WAS IN THE ROOM AND STATED HER MOM HAS TAKEN EXCEDRIN DLY IN THE AM FOR YEARS AND HAS C/O AM HEADACHE. DAUGHTER STATES NO TESTS HAVE SHOWN REASON FOR THE HEADACHES. DAUGHGTER IS AT BEDSIDE. BED IN LOW POSTION CALL LIGHT IS IN REACH. WM.
--- NOTE | 2018-11-14 10:45 | EKG ---
[place] [address] ELECTROCARDIOGRAM REPORT Name: LAMONT STEVEN Room: [address] ADM IN .R.#: [id number] Admission: 11/14/18 Attend Phys: Claude Singh MD Discharge: Date of : 36 Report #: [id number] THIS REPORT FOR: //name// [facility] ED Test Date: 2018-11-14 Test Time: 05:49:41 Pat Name: LAMONT STEVEN Department: Room: [facility] Gender: F Client Care Representative: OArtie : 1940 Requested By: Bijan Cummings Order Number: [id number] MD: Red Rodriguez Measurements Intervals [place] Rate: 104 P: 84 [place]: 160 QRS: -54 QRSD: 97 T: 79 QT: 393 QTc: 517 Interpretive Statements Sinus tachycardia nonspecific st changes Multiple premature complexes, supraven Left anterior fascicular block Borderline prolonged QT interval Baseline wander in lead(s) V4 Compared to ECG 11/12/2018 18:17:28 no change Electronically Signed On 11-14-2018 10:44:54 CDT by Red Rodriguez [email or web address] <ELECTRONICALLY SIGNED> By: Red Rodriguez MD, [facility] 11/14/18 1044 0549 0549 Red Rodriguez MD, [facility] /EPI
[2018-11-14 11:59] VITALS: BP 160/76
--- NOTE | 2018-11-14 18:43 | 2DMMODE ---
[place] [address] 2 D/M-MODE ECHOCARDIOGRAM Name: LAMONT STEVEN Room: [facility] IN [facility]#: [id number] Admission: 11/14/18 Attend Phys: Claude Singh MD Discharge: Date of : 36 Date of Service: 11/14/18 184 Report #: [id number] THIS REPORT FOR: //name// APPROVED REPORT Study performed: 11/14/2018 16:12:01 EXAM: Comprehensive 2D, Doppler, and color-flow Echocardiogram Patient Location: In-Patient Room #: [facility] Status: routine BSA: 1.53 HR: 83 bpm BP: 160/76 mmHg Rhythm: NSR Other Information Study Quality: Good Indications Dyspnea 2D Dimensions IVSd: 11.41 (7-11mm) LVOT Diam: 19.65 (18-24mm) LVDd: 42.15 mm PWd: 9.62 (7-11mm) Ascending Ao: 37.10 (22-36mm) LVDs: 24.26 (25-40mm) Aortic Root: 30.32 mm Volumes Left Atrial Volume (Systole) LA ESV Index: 43.10 mL/m2 Aortic Valve AoV Peak Jimbo.: 1.41 m/s AO Peak Gr.: 7.99 mmHg LVOT Max P.23 mmHg AO Mean Gr.: 4.48 mmHg LVOT Mean P.21 mmHg LVOT Max V: 1.03 m/s AO V2 VTI: 26.69 cm LVOT Mean V: 0.69 m/s JESSIE (VTI): 2.57 cm2 LVOT V1 VTI: 22.60 cm Mitral Valve E/A Ratio: 2.54 MV Decel. Time: 227.55 ms MV E Max Jimbo.: 1.83 m/[place] [address] 2 D/M-MODE ECHOCARDIOGRAM Name: LAMONT STEVEN Room: [address] IN .R.#: [id number] Admission: 11/14/18 Attend Phys: Claude Singh MD Discharge: Date of : 36 Date of Service: 11/14/18 1842 Report #: [id number] MV PHT: 65.99 ms MVA (PHT): 3.33 cm2 TDI E/Lateral E': 16.64 E/Medial E': 15.25 Medial E' Jimbo.: 0.12 m/s Lateral E' Jimbo.: 0.11 m/s Pulmonary Valve PV Peak Jimbo.: 0.88 m/s PV Peak Gr.: 3.13 mmHg Tricuspid Valve RAP Estimate: 5.00 mmHg TR Peak Gr.: 37.65 mmHg RVSP: 42.00 mmHg PA Pressure: 42.00 mmHg Left Ventricle The left ventricle is normal size. There is normal LV segmental wall motion. There is normal left ventricular wall thickness. Left ventricular systolic function is normal. LVEF is 65-70%. Transmitral Doppler flow pattern suggests restrictive physiology. Right Ventricle Right ventricle is mildly dilated. The right ventricular systolic function is normal. Atria Left atrium is moderately dilated. Right atrium is mildly dilated. Aortic Valve The Aortic valve is sclerotic. Mild aortic regurgitation. There is no aortic valvular stenosis. Mitral Valve There is a bioprosthetic mitral valve. Trace mitral regurgitation. No evidence of mitral valve stenosis. Tricuspid Valve The tricuspid valve is normal in structure. Mild tricuspid regurgitation. Moderate pulmonary hypertension. Pulmonic Valve The pulmonary valve is normal in structure. There is no pulmon[place] [address] 2 D/M-MODE ECHOCARDIOGRAM Name: LAMONT STEVEN Room: [address] IN [facility]#: [id number] Admission: 11/14/18 Attend Phys: Claude Singh MD Discharge: Date of : 36 Date of Service: 11/14/18 1842 Report #: [id number] Great Vessels The aortic root is normal in size. IVC is dilated and collapses <50% with inspiration. Pericardium There is no pericardial effusion. <Conclusion> The left ventricle is normal size. There is normal left ventricular wall thickness. Left ventricular systolic function is normal. LVEF is 65-70%. Transmitral Doppler flow pattern suggests restrictive physiology. Right ventricle is mildly dilated. Left atrium is moderately dilated. Right atrium is mildly dilated. The Aortic valve is sclerotic. Mild aortic regurgitation. There is a bioprosthetic mitral valve. Trace mitral regurgitation. Mild tricuspid regurgitation. Moderate pulmonary hypertension. IVC is dilated and collapses <50% with inspiration. <ELECTRONICALLY SIGNED> By: Martir Cabrera MD, FACC 11/14/181841 41 41 Martir Cabrera MD, FACC /INF
[2018-11-14 20:00] VITALS: BP 160/72
[2018-11-14] MEDS ORDERED: NEURONTIN 300300 M1 PO (21:22)
[2018-11-15] VITALS (7 sets, daily range): BP systolic 94–163; BP diastolic 64–91
--- NOTE | 2018-11-15 05:00 | NUR ---
ASSUMED CARE OF PT AFTER REPORT AT 1930. PT A&OX4. FORGETFUL. VSS. PHYSICAL ASSESSMENT COMPLETED AND CHARTED. PT ON O2 AT 2L NC WITH 94% O2 SAT. PT TRACING SR PAC ON TELE. PT UPSTANDBY TO RESTROOM. PT COMPLAINED OF BACK & NECK PAIN & NAUSEA- DR HOLDEN INFORMED WITH NEW ORDER. PT RESTED WELL ON BED. CALL LIGHT WITHIN REACH.
--- NOTE | 2018-11-15 07:15 | NUR ---
CHANGE OF SHIFT, BEDSIDE REPORT PATIENT SEEN IN BED ASLEEP ASSUMED PATIENT CARE
[2018-11-15 08:34] LABS: BE 3.8 mmol/L (-2 to +3); PCO2 45.1 mmHg (35.0-45.0); PO2 90.5 mmHg (75.0-100.0); pH 7.424 (7.340-7.450)
[2018-11-15 21:28] LABS: URINE BILIRUBIN NEGATIVE (Negative); URINE BLOOD TRACE (Negative); URINE CLARITY CLEAR; URINE COLOR YELLOW; URINE GLUCOSE-RANDOM 2+ (Negative); URINE KETONES NEGATIVE (Negative); URINE LEUKOCYTES-REFLEX NEGATIVE (Negative); URINE NITRITE-REFLEX NEGATIVE (Negative); URINE PROTEIN NEGATIVE (Negative); URINE UROBILINOGEN 0.2 E.U./dl (0.2-1.0)
[2018-11-16 03:55] VITALS: BP 132/89
--- NOTE | 2018-11-16 06:04 | NUR ---
ASSUMED CARE OF PT AFTER REPORT AT 1930. PT A&OX4. VSS. PHYSICAL ASSESSMENT COMPLETED AND CHARTED. PT ON O2 AT 2L NC WITH 99% O2 SAT. PT TRACING SR 1ST DEG ON TELE. PT UPSTANDBY TO RESTROOM. PT COMPLAINED OF BACK PAIN- PAIN MEDS GIVEN PER OCT. ALSO, PT COMPLAINED OF ITCHING ON THE UPPER EXTREMITIES- DR MISHRAINFORMED WITH NEW ORDER. PTS HR 110'S-170'S. EKG SHOWS ST. DR BACA INFORMED WITH NO ORDERS. PT RESTED WELL ON BED. CALL LIGHT WITHIN REACH.
--- NOTE | 2018-11-16 07:20 | NUR ---
CHANGE OF SHIFT BEDSIDE REPORT GIVEN PATIENT SEEN AT BEDSIDE, IN BED SLEEP ASSUMED PATIENT CARE
--- NOTE | 2018-11-16 07:34 | CON ---
[address] [address] CONSULTATION Name: LAMONT STEVEN Room: [address] IN M.R.#: [id number] Admission: 11/14/18 Attend Phys: Claude Singh MD Discharge: Date of : 38 Report #: [id number] THIS REPORT FOR: //name// CC: Michelle Singh NEW PATIENT EVALUATION REFERRING PHYSICIAN: Dr. Daniels. REASON FOR EVALUATION: COPD exacerbation, hypoxia and respiratory failure. HISTORY OF PRESENT ILLNESS: She is an 78-year-old woman who, from the records, was hospitalized in October of last year, 2017. She is known to have COPD. She has a 11-hlus-aire smoking. A previous spirogram showed obstructive defect and unfortunately, she has not been compliant with her inhaler. She states it is causing sores. She has been feeling worse over the last one month with shortness of breath on any activity; however, she is only using her oxygen at night. She has associated worsening cough recently; it is mostly dry. She came in with progressive shortness of breath. Initially, had severe bronchospasm and wheezing and currently feels partially better with bronchodilator treatment and steroids. Her shortness of breath has been worsening over the last 2-3 days. She denies any chest pain. Denies hemoptysis. Denies lower extremity swelling. From the records also, there was history of fall, history of weakness. Decreased p.o. intake. Also from the history, there was history of some dysphagia. REVIEW OF SYSTEMS: As above, dysphagia, has decreased p.o. intake and shortness of breath. Noncompliance. Otherwise, 14-point review of systems, denies weight loss, as above. PAST MEDICAL HISTORY: COPD, history of back pain, history of valvular heart disease, hypertension, aortic valve replacement and chronic bronchitis. Congestive heart failure and atrial fibrillation. PAST SURGICAL HISTORY: Tonsillectomy. HOME MEDICATIONS: Reviewed, including hydrocodone, Norvasc and Singulair. ALLERGIES: None. FAMILY HISTORY: Significant for COPD. SOCIAL HISTORY: She had 77-vllj-ikjq smoking history, quit several years ago. REVIEW OF SYSTEMS: [place] [address] CONSULTATION Name: TENISHALAMONT J Room: [address]#: [id number] Admission: 11/14/18 Attend Phys: Claude Singh MD Discharge: Date of : 38 Report #: [id number] PHYSICAL EXAMINATION: GENERAL: On examination, the patient is pleasant. She looks depressed, frail. She is afebrile. VITAL SIGNS: Maximum temperature was 36.9, pulse 101, blood pressure 160/76 and O2 saturation was 100%. She is on 2-3 liters. HEAD AND NECK: Eyes anicteric. Neck shows wasting, she has significant muscle wasting. CHEST: She has good air movement at this time, a prolonged expiratory phase; however, not wheezing, was wheezing earlier per records. CARDIOVASCULAR: Regular rate and rhythm. ABDOMEN: Soft, nontender. EXTREMITIES: No edema. Pulses are equal. PSYCHIATRIC: Alert, oriented and pleasant. NEUROLOGIC: No focal deficits. LABORATORY AND OTHER DATABASE: She had an echocardiogram back in 11/2017, which showed an ejection fraction of 55% and had atrial fibrillation at that time. Tricuspid valve was normal. Pulmonary artery pressure at that time was 36.5 and moderate concentric LVH. Chest x-ray, which I have reviewed, showed hyperinflation, no acute infiltrate. She had a head CT with her fall, which showed atrophy, brocfaed-zi-ztvfhk chronic microvascular ischemia. Her creatinine was 1. Her carbon dioxide and bicarbonate was 33. White blood cell count 10.3, hemoglobin was 11 and platelets 136,000. Previous pulmonary spirogram from 2012 showed obstructive defect, FEV1-to-FVC ratio was 51% and this was a spirogram and will need post-bronchodilator full PFT. ASSESSMENT AND PLAN: 1. Ubtpv-ll-vwejohb hypoxemic respiratory failure. The patient is currently in chronic obstructive pulmonary disease exacerbation. Chest x-ray, as above, did not show any consolidation. At this time, recommend treatment for COPD exacerbation with systemic steroids, bronchodilator treatment every 4 hours. This was discussed with her respiratory therapist. She is getting treatment as scheduled. Currently, she is on antibiotic treatment with Rocephin. We will add azithromycin. We will change her inhaler treatment to every 4 hours. At this time, she is getting steroids every 8 hours, we will decrease it to every 12. May decrease later to daily with improvement. 2. Chronic exertional dyspnea, multifactorial. Has chronic hypoxemic respiratory failure related to chronic obstructive pulmonary disease. We will obtain arterial blood gas in the morning to evaluate for hypercapnia as well. Other contributing factors including diastolic heart failure and has systemic LVH. Compliance with inhalers discussed with her; she is not compliant with her inhaler, was prescribed an inhaler by Dr. Sam, however, not taking it with [address] [place] [address] CONSULTATION Name: LAMONT STEVEN Dionicio Room: [address] IN .R.#: [id number] Admission: 11/14/18 Attend Phys: Claude Singh MD Discharge: Date of : 38 Report #: [id number] mouth sores and will need likely nebulized treatment at home. We will obtain arterial blood gas in the morning and chest x-ray. This was discussed with the patient. <ELECTRONICALLY SIGNED> By: Collins Peña MD 11/16/18 0734 1518 [id number] Caro Gutierrez MD /nt
[2018-11-16 08:00] VITALS: BP 160/98
[2018-11-16] MEDS ORDERED: PREDNISONE 10 M10 MG PO (09:51)
[2018-11-16] MEDS ORDERED: AZITHROMYCIN 2250 MG PO (09:51)
[2018-11-16 12:00] VITALS: BP 152/86
--- NOTE | 2018-11-16 13:52 | EKG ---
[place] [address] ELECTROCARDIOGRAM REPORT Name: LAMONT STEVEN Room: [address] ADM IN M.R.#: [id number] Admission: 11/14/18 Attend Phys: Claude Singh MD Discharge: Date of : 38 Report #: [id number] THIS REPORT FOR: //name// [facility] Test Date: 2018-11-15 Test Time: 23:56:05 Pat Name: LAMONT STEVEN Department: Room: [address] Gender: F Rehabilitation Services Director: [facility] : 1940 Requested By: Bart Daniels Order Number: [id number] Reading MD: Red Rodriguez Measurements Intervals [place] Rate: 90 P: -14 [place]: 175 QRS: -51 QRSD: 91 T: 35 QT: 358 QTc: 438 Interpretive Statements Sinus tachycardia supraventricular premature complex Left anterior fascicular block septal infarct, age indeterminate Compared to ECG 11/14/2018 05:49:41 Myocardial infarct finding now present ST (T wave) deviation no longer present Electronically Signed On 11-16-2018 13:52:15 CDT by Red Rodriguez [email or web address] <ELECTRONICALLY SIGNED> By: Red Rodriguez MD, [facility] 11/16/18 1352 2356 2356 Red Rodriguez MD, [facility] /EPI
--- NOTE | 2018-11-16 13:57 | EKG ---
[place] [address] ELECTROCARDIOGRAM REPORT Name: LAMONT STEVEN Room: [address] ADM IN M.R.#: [id number] Admission: 11/14/18 Attend Phys: Claude Singh MD Discharge: Date of : 36 Report #: [id number] THIS REPORT FOR: //name// [facility] Test Date: 2018-11-16 Test Time: 09:57:39 Pat Name: LAMONT STEVEN Department: Room: [address] Gender: F Hearing Screen Coordinator: : 1940 Requested By: Red Rodriguez Order Number: [id number] Dotty MD: Red Rodriguez Measurements Intervals [place] Rate: 145 P: 0 [place]: 144 QRS: -55 QRSD: 88 T: 37 QT: 316 QTc: 491 Interpretive Statements Supraventricular tachycardia Inferior infarct, old septal infarct, age indeterminate Electronically Signed On 11-16-2018 13:56:55 CDT by Red Rodriguez [email or web address] <ELECTRONICALLY SIGNED> By: Red Rodriguez MD, [facility] 11/16/18 1356 0957 0957 Red Rodriguez MD, [facility] /EPI
[2018-11-16 16:00] VITALS: BP 171/88
[2018-11-16 20:30] VITALS: BP 146/80
[2018-11-17] VITALS (7 sets, daily range): BP systolic 148–167; BP diastolic 58–87
--- NOTE | 2018-11-17 06:49 | NUR ---
PT IS STABLE WITH NO CHEST PAIN NOTED.COMPLAIN OF NECK PAIN AND PAIN KILLERS GIVEN.STILL IN NC AT 2LPM
[2018-11-17] MEDS ORDERED: DILTIAZEM 24HR180 M1 PO (10:31)
--- NOTE | 2018-11-17 10:52 | NUR ---
Pt is A&O. Resides at home with her dtr and ANIYAH. Pt discharging to home today. Pt requesting a walker, CM obtained order and faxed to Camila at [facility]. orders to be faxed to [facility] once confirmed that they are able to accept Pt at ct. Son in room and will transport. Pt has a home neb.
[2018-11-17] MEDS ORDERED: NORVASC2.5 MG PO (12:11)
--- NOTE | 2018-11-17 13:11 | EKG ---
[place] [address] ELECTROCARDIOGRAM REPORT Name: LAMONT STEVEN Room: [address] DIS IN M.R.#: [id number] Admission: 11/14/18 Attend Phys: Claude Singh MD Discharge: 11/17/18 Date of : 36 Report #: [id number] THIS REPORT FOR: //name// [facility] Test Date: 2018-11-16 Test Time: 12:00:52 Pat Name: LAMONT STEVEN Department: Room: [address] Gender: F Manager Operations And Procurement: : 1940 Requested By: Red Rodriguez Order Number: [id number] Dotty MD: Red Rodriguez Measurements Intervals [place] Rate: 80 P: 245 [place]: 211 QRS: -43 QRSD: 91 T: 31 QT: 406 QTc: 469 Interpretive Statements Sinus rhythm Atrial premature complex Probable left ventricular hypertrophy Compared to ECG 11/16/2018 09:57:39 Supraventricular tachycardia no longer present Electronically Signed On 11-17-2018 13:11:22 CDT by Red Rodriguez [email or web address] <ELECTRONICALLY SIGNED> By: Red Rodriguez MD, [facility] 11/17/18 1311 1200 1200 Red Rodriguez MD, [facility] /EPI
--- NOTE | 2018-11-17 13:17 | EKG ---
[place] [address] ELECTROCARDIOGRAM REPORT Name: LAMONT STEVEN Room: [address] DIS IN M.R.#: [id number] Admission: 11/14/18 Attend Phys: Claude Singh MD Discharge: 11/17/18 Date of : 36 Report #: [id number] THIS REPORT FOR: //name// [facility] Test Date: 2018-11-17 Test Time: 08:27:46 Pat Name: LAMONT STEVEN Department: Room: [address] Gender: F Mailing Clerk: : 1940 Requested By: Red Rodriguez Order Number: [id number] Dotty MD: Red Rodriguez Measurements Intervals [place] Rate: 63 P: 109 [place]: 170 QRS: -47 QRSD: 94 T: -27 QT: 544 QTc: 558 Interpretive Statements Sinus rhythm Atrial premature complex Left anterior fascicular block Probable left ventricular hypertrophy Anterior Q waves, possibly due to LVH Borderline T abnormalities, inferior leads Prolonged QT interval Compared to ECG 11/16/2018 09:57:39 T-wave abnormality now present Prolonged QT interval now present Electronically Signed On 11-17-2018 13:16:46 CDT by Red Rodriguez [email or web address] <ELECTRONICALLY SIGNED> By: Red Rodriguez MD, [facility] 11/17/18 1316 6 6 Red Rodriguez MD, [facility] /EPI
== END 2018-11-17 13:00 | disposition home health service (06) | DRG 189 ==
LOC: M.ERS 05:41 → M.TBA-ER 06:27 → M.2W 06:27
PROVIDERS: Family Medicine; Internal Medicine Pulmonary Disease; ADMIT Family Medicine
DX: J96.21 Acute and chronic respiratory failure with hypoxia (principal); I47.1 Supraventricular tachycardia; I24.8 Other forms of acute ischemic heart disease; J44.1 Chronic obstructive pulmonary disease with (acute) exacerbation; I50.42 Chronic combined systolic (congestive) and diastolic (congestive) heart failure; K21.9 Gastro-esophageal reflux disease without esophagitis; K21.0 Gastro-esophageal reflux disease with esophagitis; R13.10 Dysphagia, unspecified; E86.0 Dehydration; I35.1 Nonrheumatic aortic (valve) insufficiency; D64.9 Anemia, unspecified; F03.90 Unspecified dementia, unspecified severity, without behavioral disturbance, psychotic disturbance, mood disturbance, and anxiety; R41.3 Other amnesia; I48.0 Paroxysmal atrial fibrillation; I11.0 Hypertensive heart disease with heart failure; M54.9 Dorsalgia, unspecified; W19.XXXA Unspecified fall, initial encounter; Y93.89 Activity, other specified; Y92.098 Other place in other non-institutional residence as the place of occurrence of the external cause; Y99.8 Other external cause status; Z79.899 Other long term (current) drug therapy; Z79.1 Long term (current) use of non-steroidal anti-inflammatories (NSAID); Z87.891 Personal history of nicotine dependence

== ENCOUNTER 2018-12-01 13:21 | Observation (INO) | payer OTHER ==
[~2018-12-01] VITALS: Ht 165.1 cm; Wt 52.3 kg
[~2018-12-01 13:21] MED LIST changes: +DILTIAZEM 24HR180 M1 PO; +NEURONTIN 300300 M1 PO
[2018-12-01 13:45] VITALS: BP 123/54
--- NOTE | 2018-12-01 13:45 | NUR ---
DIRECT ADMIT TO 233 VIA WC PATIENT SETTLED INT ORIENTED TO CALL LIGHT AND BED FAMILY AT BEDSIDE PATIENT WITH C/O NECK, BACK, HEAD PAIN NURSE NOTIFIED AND WILL CONTACT DR FOR PAIN MEDICATION PRN MICHELLE AND FOR OTHER ORDERS TO ADMIT AND TREAT
[2018-12-01 14:23] LABS: HEMATOCRIT 33.5 % (37.0-47.0); MCH 27.8 pg (26.0-34.0); MCHC 32.9 g/dL (28.0-37.0); MCV 84.5 fL (80.0-100.0); MPV 7.9 fl. (7.2-11.1); RBC 3.96 mil/uL (4.20-5.00); RDW-CV 14.1 % (10.5-14.5); WBC 12.9 thou/uL (4.0-11.0)
--- NOTE | 2018-12-01 14:24 | EKG ---
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: : 1940 Requested By: Claude Singh Order Number: [id number] Reading MD: Red Rodriguez Measurements Intervals [place] Rate: 67 P: 38 [place]: 179 QRS: -49 QRSD: 91 T: 241 QT: 406 QTc: 429 Interpretive Statements Sinus rhythm Atrial premature complex Left anterior fascicular block LVH with secondary repolarization abnormality Compared to ECG 11/17/2018 08:27:46 Q waves no longer present T-wave abnormality no longer present Prolonged QT interval no longer present Electronically Signed On 12-01-2018 14:24:04 CDT by Red Rodriguez [email or web address] <ELECTRONICALLY SIGNED> By: Red Rodriguez MD, [facility] 12/01/18 1424 1416 1416 Red Rodriguez MD, [facility] /EPI
[2018-12-01 14:28] LABS: APTT 23.6 Seconds (25.0-31.3); PROTIME 9.9 Seconds (9.20-11.50)
[2018-12-01 14:43] LABS: ALBUMIN 3.3 g/dL (3.4-5.0); ALKALINE PHOSPHATASE 102 U/L (46-116); ANION GAP 3 mmol/L (7-16); BUN 29 mg/dL (7-18); CALCIUM 8.3 mg/dL (8.5-10.1); CHLORIDE 100 mmol/L (98-107); CO2 34 mmol/L (21-32); CREATININE 1.1 mg/dL (0.6-1.3); GLUCOSE 121 mg/dL (70-99); POTASSIUM 4.7 mmol/L (3.5-5.1); SGOT 20 U/L (15-37); SGPT 27 U/L (30-65); SODIUM 137 mmol/L (136-145); TOTAL BILIRUBIN 0.3 mg/dL (<0.1-1.0); TOTAL PROTEIN 6.4 g/dL (6.4-8.2); TROPONIN-I LEVEL <0.06 ng/mL (<0.06)
[2018-12-01 16:32] VITALS: BP 140/54
[2018-12-01 20:15] VITALS: BP 148/54
--- NOTE | 2018-12-01 22:22 | NUR ---
INITAL ASSESMENT COMPLETED AT 2014. PT RESTING QUIETLY IN BED AT THAT TIME. PT DENIED CHEST PAIN PRESSURE OR SHORTNESS OF AIR. PT ON O2 AT 2 LITERS PER NASAL CANULA. PT GIVEN HS MEDS PER EMAR. PT INFORMED SHE WOULD NOT AVE ANYTHING TO EAT OR DRINK AFTER MIDNIGHT FOR STRESS TEST IN AM. DISCUSSED USIG CALL LIGHT TO [facility] BEFORE GETTING UP.
[2018-12-02] VITALS: BP 144/64
[2018-12-02 03:49] VITALS: BP 156/62
[2018-12-02 04:59] LABS: HEMOGLOBIN 9.6 gm/dL (12.0-15.0); MCHC 33.1 g/dL (28.0-37.0); MCV 84.5 fL (80.0-100.0); MPV 7.8 fl. (7.2-11.1); RBC 3.43 mil/uL (4.20-5.00); RDW-CV 14.2 % (10.5-14.5); WBC 9.1 thou/uL (4.0-11.0)
[2018-12-02 05:34] LABS: ANION GAP 3 mmol/L (7-16); BUN 21 mg/dL (7-18); CALCIUM 8.1 mg/dL (8.5-10.1); CHLORIDE 104 mmol/L (98-107); CHOLESTEROL 172 mg/dL (<200); CO2 34 mmol/L (21-32); CREATININE 1.1 mg/dL (0.6-1.3); GLUCOSE 96 mg/dL (70-99); HDL CHOLESTEROL 75 mg/dL (>40); LDL CHOLESTEROL 75 mg/dL (<100); POTASSIUM 4.4 mmol/L (3.5-5.1); SODIUM 141 mmol/L (136-145); TC:HDL 2.3 Ratio (Not establshd); TRIGLYCERIDE 110 mg/dL (<150); VLDL 22 mg/dL (<40)
[2018-12-02 05:35] LABS: SERUM ASSESSMENT Clear
--- NOTE | 2018-12-02 07:15 | NUR ---
CHANGE OF SHIFT BEDSIDE REPORT GIVEN PATIENT SEEN AT BEDSIDE, IN BED ASLEEP BED ALARM SET ASSUMED PATIENT CARE
[2018-12-02 08:00] VITALS: BP 167/78
[2018-12-02 12:23] VITALS: BP 163/74
[2018-12-02 12:27] VITALS: BP 167/82
[2018-12-02 12:37] VITALS: BP 167/82
--- NOTE | 2018-12-02 12:43 | NUR ---
MET WITH PT, DTR/BOOKER WHO IS DPOA AND SON YANELIS TO DISCUSS HOME SITUATION/DC PLANNING. PT LIVES WITH BOOKER AND HER FAMILY. SHE IS FAIRLY INDEPENDENT WITH ADLS. USES CANE OR WALKER AND NEBULIZER. SHE IS CURRENT WITH [facility] AND WANTS TO CONTINUE WITH THEM AT [place]. PT STATES SHE IS FEELING IMPROVED AND HOPES TO GO HOME SOON. DENIES OTHER NEEDS.
--- NOTE | 2018-12-02 14:22 | CARDNUC ---
[place] [address] CARDIAC NUCLEAR IMAGING REPORT Name: LAMONT STEVEN Room: [address] IN [facility]#: [id number] Admission: 12/01/18 Attend Phys: Claude Singh MD Discharge: Date of : 36 Date of Service: 12/02/18 1421 Report #: [id number] THIS REPORT FOR: //name// APPROVED REPORT Study performed: 12/01/2018 16:01:00 Indication: Chest pain, Dyspnea, pre-syncope episode, EKG Changes. Patient Location: In-Patient Room #: 233 Stress Tech: Samantha Latham Stress Nurse: Dora Thomson RN Ht: 5 ft 5 in Wt: 110 lbs BSA: 1.53 m2 BMI: 18.30 Medical History Medical History: Angina, Arrhythmia, CHF, CKD, COPD, Fatigue, Former Smoker, HTN, SOB, Valvular heart disease, Weakness, Prostatic Aortic Valve, PSVT. Medications: Carvedilol, Lovenox, ASA 81 MG, Cardizem, NTG. Allergies: No known drug allergies Cardiac Risk Factors: Age, HTN, SOB, Tobacco History (Former), Past Smoker, CKD 3, COPD. Previous Cardiac Procedures: Aortic valve replacement Pretest Chest Pain Characteristics: No chest pain Exercise History: Sedentary Physical Disabilities: Extreme weakness/fatigue, unstable gait, fall risk. Meds Held (24 hrs): Carvedilol held >12 hours, < 24 hours. Resting Data Rest SPECT myocardial perfusion imaging was performed in supine position 30 minutes following the intravenous injection of 10.6 mCi of Tc-99m Sestamibi. Time of rest injection: 08:00 The images were gated to evaluate regional wall motion and calculate left ventricular ejection fraction. Administration Route: IV Administration Site: Right [place] [address] CARDIAC NUCLEAR IMAGING REPORT Name: LAMONT STEVEN Room: [address] IN ..#: [id number] Admission: 12/01/18 Attend Phys: Claude Singh MD Discharge: Date of : 36 Date of Service: 12/02/18 1421 Report #: [id number] Pharmacologic stress test was performed by injecting Regadenoson 0.4 mg IV push over 10-15 seconds immediately followed by the intravenous injection of 34.5 mCi of Tc-99m Sestamibi. Time of stress injection: 09:50 Administration Route: IV Administration Site: Right Hand Heart Rate at time of stress injection: 97 bpm. Gated Stress SPECT was performed 40 minutes after stress injection. The images were gated to evaluate regional wall motion and calculate left ventricular ejection fraction. Prone imaging was performed. Stress Test Details Stress Test: Pharmacologic stress testing performed using 0.4 mg of regadenoson per 5 mL given IV over 10 seconds. Reason for pharmacologic stress test: Extreme fatigue/weakness, fall risk, unstable gait.. 60 mg caffeine given for headache, nausea, dizziness.. HR Max Heart Rate (APMHR): 140 bpm Resting HR: 79 bpm Target HR (85% APMHR): 119 bpm Max HR Achieved: 97 bpm % of APMHR: 69 Recovery HR: 86 bpm BP Resting BP: 146/84 mmHg Max BP: 115/61 mmHg Recovery BP: 144/74 mmHg ECG Resting ECG: Sinus Rhythm, nonspecific ST-T abnormalities Stress ECG: Sinus Rhythm, nonspecific ST-T abnormalities ST Change: None Arrhythmia: None Recovery ECG: Sinus Rhythm, nonspecific ST-T abnormalities Recovery ST Change: None Recovery Arrhythmia: None Clinical Reason for Termination: Completed protocol Stress Symptoms: Abdominal discomfort, Dizziness, Fatigue, Headache, Lightheaded, Nausea, Weakness. Exercise duration: 0 min 0 [place] [address] CARDIAC NUCLEAR IMAGING REPORT Name: LAMONT STEVEN Room: [address]#: [id number] Admission: 12/01/18 Attend Phys: Claude Singh MD Discharge: Date of : 36 Date of Service: 12/02/18 1421 Report #: [id number] Exercise capacity: 1.00 METs The patient tolerated Lexiscan infusion without significant cardiac symptoms. Nurse Comments 78 year old female inpatient presented with headache and extreme weakness and fatigue. Patient tolerated sitting Lexiscan with strong nausea, headache and dizziness/lightheadedness. Recovery with 60 mg IV caffeine so patient could take PO caffeine, effective. Fatigue and weakness continued. Patient escorted via wheelchair by staff to Nuclear Medicine for images. Patient stable with no complaints at that time. Stress ECG Conclusion Baseline 12-lead EKG shows sinus rhythm with nonspecific T-wave inversion and slight ST segment depression in the inferolateral leads. EKGs obtained during and post Lexiscan infusion showed sinus rhythm with no significant ST or T wave changes when compared to baseline. There were no stress-induced arrhythmias. Study Quality Study: Good Artifact: No artifact Study Data At rest, the left ventricular ejection fraction was 68%.. Post stress, the left ventricular ejection was 56%.. TID = 1.06. Perfusion Perfusion images at rest and post Lexiscan stress show uniform uptake of the radioisotope throughout the myocardium with no defect. Normal left ventricular perfusion. Wall Motion Normal left ventricular wall motion. Nuclear Conclusion ECG Findings: non-diagnostic Clinical Findings: negative for ischemia Nuclear Findings: negative for ischemia Exercise Capacity: not assessed Left Ventricular Function: normal Risk Study: low Myocardial perfusion images show no defect to suggest infarct or ischemia. Left ventricular systolic function [place] [address] CARDIAC NUCLEAR IMAGING REPORT Name: LAMONT STEVEN Room: [address] IN [facility].#: [id number] Admission: 12/01/18 Attend Phys: Claude Singh MD Discharge: Date of : 36 Date of Service: 12/02/18 1421 Report #: [id number] studies. This is a low risk study. <Conclusion> Baseline 12-lead EKG shows sinus rhythm with nonspecific T-wave inversion and slight ST segment depression in the inferolateral leads. EKGs obtained during and post Lexiscan infusion showed sinus rhythm with no significant ST or T wave changes when compared to baseline. There were no stress-induced arrhythmias. <ELECTRONICALLY SIGNED> By: Martir Cabrera MD, FACC 12/02/18 [phone] Martir Cabrera MD, FACC /INF
[2018-12-02] MEDS ORDERED: CARDIZEM CD240 MG PO (16:38)
[2018-12-02] MEDS ORDERED: CELEXA20 MG PO (16:41)
[2018-12-02] MEDS ORDERED: TYLENOL325 MG PO (16:42)
--- NOTE | 2018-12-02 17:30 | NUR ---
PATIENT DISCHARGED TO HOME ALL DISCHARGE INFORMATION GIVEN, ACKNOWLEDGED, SIGNED COPIES GIVEN IV AND HEART MONITOR REMOVED PERSOANL BELONGINGS RETURNED PATIENT ASSISTED OUT VIA WC GOOD CONDITION TO WAITING CAR
--- NOTE | 2018-12-03 09:40 | NUR ---
PT. DISCHARGED TO HOME PRIOR TO O.T. EVAL. PLEASE ORDER FURTHER O.T. SERVICES IF NEEDED.
== END 2018-12-02 17:30 | disposition home or self-care (01) ==
LOC: M.2W 13:21
PROVIDERS: ADMIT Family Medicine
DX: R55 Syncope and collapse (principal); R94.31 Abnormal electrocardiogram [ECG] [EKG]; J44.9 Chronic obstructive pulmonary disease, unspecified; Z95.2 Presence of prosthetic heart valve; D68.59 Other primary thrombophilia; K21.9 Gastro-esophageal reflux disease without esophagitis; I35.1 Nonrheumatic aortic (valve) insufficiency; I50.1 Left ventricular failure, unspecified; M54.9 Dorsalgia, unspecified; M54.2 Cervicalgia; G89.29 Other chronic pain; I48.2 Chronic atrial fibrillation; I13.0 Hypertensive heart and chronic kidney disease with heart failure and stage 1 through stage 4 chronic kidney disease, or unspecified chronic kidney disease; N18.3 Chronic kidney disease, stage 3 (moderate); I50.22 Chronic systolic (congestive) heart failure; Z79.899 Other long term (current) drug therapy; Z90.89 Acquired absence of other organs; Z98.890 Other specified postprocedural states

== ENCOUNTER → 2019-08-24 | Outpatient (CLI) | payer OTHER ==
[~2019-08-24] MED LIST changes: +CARDIZEM CD240 MG PO; +CELEXA20 MG PO; +TYLENOL325 MG PO
--- NOTE | 2019-08-24 16:59 | 2DMMODE ---
[place] [address] 2 D/M-MODE ECHOCARDIOGRAM Name: LAMONT STEVEN Room: [facility]#: [id number] Admission: 08/24/19 Attend Phys: Rebecca Durant Discharge: Date of : 36 Date of Service: 08/24/19 1658 Report #: [id number] THIS REPORT FOR: //name// APPROVED REPORT Study performed: 08/24/2019 13:10:20 EXAM: Comprehensive 2D, Doppler, and color-flow Echocardiogram Patient Location: Out-Patient BSA: 1.50 HR: 88 bpm BP: 150/70 mmHg Other Information Study Quality: Good Indications Dyspnea 2D Dimensions IVSd: 11.49 (7-11mm) LVOT Diam: 20.39 (18-24mm) LVDd: 40.46 mm PWd: 10.51 (7-11mm) Ascending Ao: 30.84 (22-36mm) LVDs: 24.82 (25-40mm) Aortic Root: 30.66 mm Volumes Left Atrial Volume (Systole) LA ESV Index: 27.60 mL/m2 Aortic Valve AoV Peak Jimbo.: 1.05 m/s AO Peak Gr.: 4.37 mmHg LVOT Max P.32 mmHg AO Mean Gr.: 2.52 mmHg LVOT Mean P.54 mmHg LVOT Max V: 0.91 m/s AO V2 VTI: 16.88 cm LVOT Mean V: 0.57 m/s JESSIE (VTI): 2.77 cm2 LVOT V1 VTI: 14.31 cm AI Carlisle: 2.15 m/s2 AI PHT: 620.18 ms Mitral Valve E/A Ratio: 2.66 MV Decel. Time: 192.69 ms MV E Max Jimbo.: 0.94 m/[place] [address] 2 D/M-MODE ECHOCARDIOGRAM Name: LAMONT STEVEN Room: [facility]#: [id number] Admission: 08/24/19 Attend Phys: Rebecca Durant Discharge: Date of : 36 Date of Service: 08/24/19 1658 Report #: [id number] MV PHT: 55.88 ms MVA (PHT): 3.94 cm2 TDI E/Lateral E': 10.44 E/Medial E': 13.43 Medial E' Jimbo.: 0.07 m/s Lateral E' Jimbo.: 0.09 m/s Pulmonary Valve PV Peak Jimbo.: 0.76 m/s PV Peak Gr.: 2.30 mmHg Tricuspid Valve RAP Estimate: 5.00 mmHg TR Peak Gr.: 23.54 mmHg RVSP: 28.54 mmHg PA Pressure: 28.54 mmHg Left Ventricle The left ventricle is normal size. There is normal LV segmental wall motion. There is normal left ventricular wall thickness. Left ventricular systolic function is normal. LVEF is 60-65%. This study is not technically sufficient to allow evaluation of the LV diastolic function due to atrial fibrillation. Right Ventricle The right ventricle is normal size. The right ventricular systolic function is normal. Atria Left atrium is mildly dilated. The right atrium size is normal. Aortic Valve Aortic valve is mild calcified. Mild aortic regurgitation. There is no aortic valvular stenosis. Mitral Valve Mitral valve repair. There is no mitral valve regurgitation noted. No evidence of mitral valve stenosis. Tricuspid Valve The tricuspid valve is normal in structure. Mild tricuspid regurgitation. No pulmonary hypertension. Pulmonic Valve The pulmonary valve is normal in structure. There is no pulmonic [place]vular [place] [address] 2 D/M-MODE ECHOCARDIOGRAM Name: LAMONT STEVEN Room: [facility]#: [id number] Admission: 08/24/19 Attend Phys: Rebecca Durant Discharge: Date of : 36 Date of Service: 08/24/19 1658 Report #: [id number] Great Vessels The aortic root is normal in size. IVC is normal in size and collapses >50% with inspiration. Pericardium There is no pericardial effusion. <Conclusion> The left ventricle is normal size. There is normal left ventricular wall thickness. Left ventricular systolic function is normal. LVEF is 60-65%. Left atrium is mildly dilated. Aortic valve is mild calcified. Mild aortic regurgitation. There is no aortic valvular stenosis. Mitral valve repair. There is no mitral valve regurgitation noted. Mild tricuspid regurgitation. No pulmonary hypertension. IVC is normal in size and collapses >50% with inspiration. <ELECTRONICALLY SIGNED> By: Martir Cabrera MD, FACC 08/24/198 57 57 Martir Cabrera MD, FACC /INF
== END ==
LOC: M.CRD 12:39
DX: I08.2 Rheumatic disorders of both aortic and tricuspid valves (principal); I10 Essential (primary) hypertension

== ENCOUNTER → 2019-09-18 | Outpatient (CLI) | payer OTHER | LOC: M.RAD 11:40 | DX: M47.813 Spondylosis without myelopathy or radiculopathy, cervicothoracic region (principal); M47.816 Spondylosis without myelopathy or radiculopathy, lumbar region ==

== ENCOUNTER → 2019-09-29 | Outpatient (CLI) | payer OTHER | LOC: M.MRI 09-22 16:04 | DX: S13.140A Subluxation of C3/C4 cervical vertebrae, initial encounter (principal); M47.22 Other spondylosis with radiculopathy, cervical region; M51.36 Other intervertebral disc degeneration, lumbar region; M48.02 Spinal stenosis, cervical region; M47.816 Spondylosis without myelopathy or radiculopathy, lumbar region; M48.061 Spinal stenosis, lumbar region without neurogenic claudication; M50.11 Cervical disc disorder with radiculopathy, high cervical region; M25.78 Osteophyte, vertebrae; M51.26 Other intervertebral disc displacement, lumbar region; M50.10 Cervical disc disorder with radiculopathy, unspecified cervical region; X58.XXXA Exposure to other specified factors, initial encounter; Y93.89 Activity, other specified; Y92.89 Other specified places as the place of occurrence of the external cause; Y99.8 Other external cause status ==

== ENCOUNTER → 2019-10-13 | Outpatient (CLI) | payer OTHER | LOC: M.ULTRA 10:30 | DX: K82.0 Obstruction of gallbladder (principal) ==

== ENCOUNTER 2019-11-23 12:23 | Inpatient (IN) | payer OTHER ==
[~2019-11-23] VITALS: Ht 165.1 cm; Wt 54.6 kg
--- NOTE | ~2019-11-23 | OP ---
[address] [address] OPERATIVE REPORT Name: TENISHALAMONT J Room: [address] IN .R.#: [id number] Admission: 11/23/19 Attend Phys: Oleg Oliver MD Discharge: Date of : 38 Report #: [id number] THIS REPORT FOR: //name// cc: Michelle Jose MD, Katrina MD ~ THIS REPORT FOR: //name// CC: Oleg Jose DICTATED BY: Iftikhar Salazar DO DATE OF SERVICE: 11/24/2019 PREOPERATIVE DIAGNOSIS: Left intertrochanteric femur fracture. POSTOPERATIVE DIAGNOSIS: Left intertrochanteric femur fracture. PROCEDURE PERFORMED: 1. Left hip open reduction and internal fixation with cephalomedullary nail. 2. Physician directed fluoroscopy less than 1 hour. IMPLANTS: [place] gamma nail system utilizing a 180 mm nail with a 95 mm lag screw and appropriately sized distal locking screw. SURGEON: Martir mac DO MECHANIST: Iftikhar Salazar DO and Adria Randolph DO ANESTHESIA: General and local. FLUIDS: Crystalloid per Anesthesia. ESTIMATED BLOOD LOSS: 50 mL. DRAINS: None. SPECIMENS: None. COMPLICATIONS: None. CONDITION: Stable to PACU. DISPOSITION: Recovery in PACU and transferred back to Med/Surg. ANTIBIOTICS: 1 gram Ancef IV preop. [address] [address] OPERATIVE REPORT Name: LAMONT STEVEN Room: [address] IN [facility]#: [id number] Admission: 11/23/19 Attend Phys: Oleg Oliver MD Discharge: Date of : 38 Report #: [id number] INDICATIONS: The patient is a very pleasant 79-year-old female who sustained a ground level fall yesterday. We recommended surgical fixation given the intertrochanteric femur fracture identified on x-ray. The risks, benefits, alternatives and possible complications including, nonunion, malunion, bleeding, nerve injury, need for repeat surgery, DVT, PE, , possible anesthesia complications and others were discussed at length and she was agreeable to proceed. DESCRIPTION OF PROCEDURE: The patient was met in the preoperative area. The correct site was marked. Consent was obtained. She was transferred to the operative suite and given the benefits of general anesthesia. She was then transferred to the fracture table and secured to the table, ensuring adequate padding of all bony prominences. The left leg was placed in the boot and in traction. The right leg was placed in the Well olsen. We took x-rays to identify an appropriate reduction. She was also given antibiotics within 30 minutes of the procedure. The left hip was then sterilely prepped and draped in the normal sterile fashion. A timeout was performed to identify the correct patient, procedure, operative site and antibiotic administration. All in the room were in agreement. We used fluoroscopy to identify our starting point. A 3 cm incision was made just proximal to the tip of the greater trochanter. Sharp and blunt dissection was carried down to the level of the greater trochanter. A guidewire was used to identify our starting point and inserted into the femur. We then confirmed appropriate location. The opening reamer was then used followed by insertion of the ball-tipped guidewire. We then reamed with a 13 reamer. The appropriately sized needle was then placed to the appropriate location, which was confirmed on fluoroscopy. The guidewire was removed and then we used the double sleeve to establish a starting point for the lag screw. We did make an incision laterally for this and down to the level of the bone. We used a guidewire and placed this into the femoral head at the appropriate location and confirmed on fluoroscopy. We then reamed after measuring for a 95 screw. The lag screw was then placed. We then placed a set screw. The attention was turned to the distal interlocking screw. We used the triple sleeve through the guide. Incision was made laterally for this and then carried down to bone. We then drilled and measured for an appropriately sized distal interlocking screw and this was secured to be in appropriate location on x-ray. Final x-rays were then saved. The incisions were then copiously irrigated. The fascia was closed with 0 Vicryl in a simple interrupted fashion. We then reapproximated the subcutaneous tissues with 2-0 Vicryl followed by mikel on the skin. We used 0.5% Marcaine for local anesthetic about the incisions. We then applied sterile Mepilex dressings. Anesthesia was reversed by the anesthesia team. She was transferred to the PACU in stable condition. All needle and sponge counts were correct x 2 at the end of the case. I attest Dr. Mac was present and scrubbed throughout all critical [place] [address] OPERATIVE REPORT Name: LAMONT STEVEN Room: [address] [facility] IN M.R.#: [id number] Admission: 11/23/19 Attend Phys: Oleg Oliver MD Discharge: Date of : 38 Report #: [id number] POSTOPERATIVE COURSE: The patient will be on Lovenox for DVT prophylaxis. We will have her be 50% weightbearing on the left lower extremity and work with physical and occupational therapy. By: 1453 [id number] Mac DO /marii
[~2019-11-23 12:23] MED LIST changes: -TRAZODONE 50 MG PO; +TRAZODONE 50MG PO
[2019-11-23 12:29] VITALS: BP 144/57
[2019-11-23 12:47] LABS: ABSOLUTE BASOPHILS 0.1 thou/uL (0.0-0.2); ABSOLUTE EOSINOPHILS 0.2 thou/uL (0.0-0.7); ABSOLUTE LYMPHOCYTES 1.2 thou/uL (0.8-5.3); ABSOLUTE MONOCYTES 0.5 thou/uL (0.0-1.2); ABSOLUTE NEUTROPHILS 5.9 thou/uL (1.6-8.1); BASOPHILS 0.8 %; EOSINOPHILS 2.2 %; HEMATOCRIT 32.5 % (37.0-47.0); HEMOGLOBIN 10.5 gm/dL (12.0-15.0); LYMPHOCYTES 15.4 %; MCHC 32.4 g/dL (28.0-37.0); MCV 80.4 fL (80.0-100.0); MONOCYTES 6.9 %; MPV 6.9 fl. (7.2-11.1); NUCLEATED RBCS 0 /100WBC; PLATELET COUNT* 271 thou/uL (150-400); POLYS 74.7 %; RBC 4.04 mil/uL (4.20-5.00); RDW-CV 15.1 % (10.5-14.5); WBC 7.9 thou/uL (4.0-11.0)
[2019-11-23 12:55] LABS: CALCIUM 8.6 mg/dL (8.5-10.1); CREATININE 1.1 mg/dL (0.6-1.3)
[2019-11-23 13:00] LABS: ALBUMIN 3.5 g/dL (3.4-5.0); TOTAL BILIRUBIN 0.3 mg/dL (<0.1-1.0); TOTAL PROTEIN 6.8 g/dL (6.4-8.2)
[2019-11-23 13:07] LABS: URINE BILIRUBIN NEGATIVE (Negative); URINE BLOOD TRACE (Negative); URINE CLARITY CLEAR; URINE COLOR YELLOW; URINE GLUCOSE-RANDOM NEGATIVE (Negative); URINE KETONES NEGATIVE (Negative); URINE LEUKOCYTES-REFLEX NEGATIVE (Negative); URINE NITRITE-REFLEX NEGATIVE (Negative); URINE PROTEIN NEGATIVE (Negative); URINE UROBILINOGEN 0.2 E.U./dl (0.2-1.0)
[2019-11-23 14:08] LABS: APTT 26.2 Seconds (25.0-31.3); PROTIME 10.4 Seconds (9.20-11.50)
--- NOTE | 2019-11-23 16:36 | EKG ---
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: : 1940 Requested By: Emily Arroyo Order Number: [id number] MD: Hayes Martinez Measurements Intervals [place] Rate: 66 P: 0 NJ: 152 QRS: -58 QRSD: 107 T: 89 QT: 459 QTc: 481 Interpretive Statements Sinus rhythm with frequent pac's Incomplete RBBB and LAFB Abnormal R-wave progression, early transition Nonspecific T abnormalities, lateral leads Borderline prolonged QT interval Compared to ECG 12/01/2018 14:16:59 Incomplete right bundle-branch block now present Left ventricular hypertrophy no longer present Early repolarization no longer present Electronically Signed On 11-23-2019 16:35:01 CDT by Hayes Martinez [email or web address] <ELECTRONICALLY SIGNED> By: Hayes Martinez MD, [facility] 11/23/19 1635 1419 1419 Hayes Martinez MD, [facility] /EPI
[2019-11-23 16:56] VITALS: BP 157/65
[2019-11-23] MEDS ORDERED: CYMBALTA30 MG PO (19:24)
[2019-11-23] MEDS ORDERED: CARVEDILOL6.25 M1 PO (19:26)
[2019-11-23] MEDS ORDERED: VITAMIN D310 MC1 PO (19:29)
[2019-11-23] MEDS ORDERED: CELEBREX100 MG/1 C PO (19:30)
[2019-11-23] MEDS ORDERED: ZANAFLEX2 M1 PO (19:31)
[2019-11-23] MEDS ORDERED: NORCO 7.5-3251 EACH PO (19:32)
[2019-11-23 20:00] VITALS: BP 145/63
[2019-11-24] VITALS (7 sets, daily range): BP systolic 110–149; BP diastolic 45–64
[2019-11-24 06:19] LABS: ABSOLUTE EOSINOPHILS 0.1 thou/uL (0.0-0.7); ABSOLUTE LYMPHOCYTES 0.9 thou/uL (0.8-5.3); ABSOLUTE MONOCYTES 0.6 thou/uL (0.0-1.2); ABSOLUTE NEUTROPHILS 6.8 thou/uL (1.6-8.1); BASOPHILS 0.5 %; EOSINOPHILS 1.6 %; HEMATOCRIT 30.6 % (37.0-47.0); LYMPHOCYTES 10.7 %; MCH 26.4 pg (26.0-34.0); MCHC 32.7 g/dL (28.0-37.0); MCV 80.6 fL (80.0-100.0); MONOCYTES 7.1 %; MPV 7.3 fl. (7.2-11.1); NUCLEATED RBCS 0 /100WBC; PLATELET COUNT* 220 thou/uL (150-400); POLYS 80.1 %; RBC 3.79 mil/uL (4.20-5.00); WBC 8.5 thou/uL (4.0-11.0)
[2019-11-24 06:23] LABS: CALCIUM 8.7 mg/dL (8.5-10.1); CREATININE 0.9 mg/dL (0.6-1.3)
[2019-11-25] VITALS: BP 139/51
[2019-11-25 04:00] VITALS: BP 150/43
[2019-11-25 06:38] LABS: HEMATOCRIT 27.5 % (37.0-47.0); MCH 26.2 pg (26.0-34.0); MCHC 32.6 g/dL (28.0-37.0); MCV 80.1 fL (80.0-100.0); MPV 7.8 fl. (7.2-11.1); NUCLEATED RBCS 0 /100WBC; PLATELET COUNT* 226 thou/uL (150-400); RBC 3.43 mil/uL (4.20-5.00); RDW-CV 14.9 % (10.5-14.5); WBC 11.6 thou/uL (4.0-11.0)
[2019-11-25 06:52] LABS: CREATININE 0.9 mg/dL (0.6-1.3); POTASSIUM 4.2 mmol/L (3.5-5.1)
[2019-11-25 08:01] VITALS: BP 138/54
[2019-11-25 08:07] LABS: ABSOLUTE MONOCYTES 0.2 thou/uL (0.0-1.2); ABSOLUTE NEUTROPHILS 10.3 thou/uL (1.6-8.1); PLATELET ESTIMATE ADEQUATE
[2019-11-25 11:48] VITALS: BP 118/49
[2019-11-25 16:13] VITALS: BP 137/44
[2019-11-25 20:00] VITALS: BP 165/72
[2019-11-26] VITALS: BP 144/72
[2019-11-26 05:35] LABS: ABSOLUTE EOSINOPHILS 0.2 thou/uL (0.0-0.7); ABSOLUTE LYMPHOCYTES 1.2 thou/uL (0.8-5.3); ABSOLUTE MONOCYTES 1.1 thou/uL (0.0-1.2); ABSOLUTE NEUTROPHILS 8.2 thou/uL (1.6-8.1); BASOPHILS 0.3 %; EOSINOPHILS 1.9 %; HEMOGLOBIN 9.2 gm/dL (12.0-15.0); LYMPHOCYTES 11.5 %; MCH 26.6 pg (26.0-34.0); MCV 80.7 fL (80.0-100.0); MONOCYTES 9.9 %; MPV 7.9 fl. (7.2-11.1); NUCLEATED RBCS 0 /100WBC; PLATELET COUNT* 261 thou/uL (150-400); POLYS 76.4 %; RBC 3.47 mil/uL (4.20-5.00); RDW-CV 15.3 % (10.5-14.5); WBC 10.7 thou/uL (4.0-11.0)
[2019-11-26 05:43] LABS: CALCIUM 9.2 mg/dL (8.5-10.1); CREATININE 0.8 mg/dL (0.6-1.3); POTASSIUM 4.2 mmol/L (3.5-5.1)
[2019-11-26 08:36] VITALS: BP 97/50
[2019-11-26 12:04] VITALS: BP 107/40
[2019-11-26 16:35] VITALS: BP 111/45
[2019-11-26 20:15] VITALS: BP 128/68
[2019-11-27] VITALS: BP 100/48
[2019-11-27 04:00] VITALS: BP 143/57
[2019-11-27 08:00] VITALS: BP 113/47
[2019-11-27 11:59] VITALS: BP 112/47
[2019-11-27] MEDS ORDERED: LOVENOX40 MG/0.4 SUBQ (15:37)
[2019-11-27] MEDS ORDERED: NORCO 5-325 TA1 EAC1 PO (15:38)
[2019-11-27 15:42] VITALS: BP 112/47; BP 112/471
[2019-11-27] MEDS ORDERED: ALBUTEROL2.5 MG/0.5 INH (16:08)
== END 2019-11-27 17:35 | DRG 481 ==
LOC: M.ERS 12:23 → M.2W 14:09 → M.TBA-ER 14:09 → M.2W 17:14
PROVIDERS: Orthopaedic Surgery; Personal Emergency Response Attendant; ADMIT Internal Medicine
PROC: 0QS704Z Reposition Left Upper Femur with Internal Fixation Device, Open Approach (ICD-10-PCS; principal; 2019-11-24)
DX: M80.052A Age-related osteoporosis with current pathological fracture, left femur, initial encounter for fracture (principal); E44.0 Moderate protein-calorie malnutrition; I50.42 Chronic combined systolic (congestive) and diastolic (congestive) heart failure; D62 Acute posthemorrhagic anemia; W01.0XXA Fall on same level from slipping, tripping and stumbling without subsequent striking against object, initial encounter; S72.142A Displaced intertrochanteric fracture of left femur, initial encounter for closed fracture; J42 Unspecified chronic bronchitis; I48.91 Unspecified atrial fibrillation; J43.9 Emphysema, unspecified; I11.0 Hypertensive heart disease with heart failure; Z79.891 Long term (current) use of opiate analgesic; Z79.899 Other long term (current) drug therapy; Z79.82 Long term (current) use of aspirin; Y93.89 Activity, other specified; Z87.891 Personal history of nicotine dependence; Y99.8 Other external cause status; Z90.89 Acquired absence of other organs; Z79.01 Long term (current) use of anticoagulants; Y92.89 Other specified places as the place of occurrence of the external cause; Z68.20 Body mass index [BMI] 20.0-20.9, adult

== ENCOUNTER 2019-11-27 15:59 | Inpatient (IN) | payer OTHER ==
[~2019-11-27] VITALS: Ht 165.1 cm; Wt 45.8 kg
[~2019-11-27 15:59] MED LIST changes: +CARVEDILOL6.25 M1 PO; +CELEBREX100 MG/1 C PO; +CYMBALTA30 MG PO; +LOVENOX40 MG/0.4 SUBQ; +NORCO 5-325 TA1 EAC1 PO; +NORCO 7.5-3251 EACH PO; +VITAMIN D310 MC1 PO; +ZANAFLEX2 M1 PO
[2019-11-27] MEDS ORDERED: ALBUTEROL2.5 MG/0.5 INH (16:08)
[2019-11-27 17:45] VITALS: BP 138/51
[2019-11-27 20:23] VITALS: BP 140/69
--- NOTE | 2019-11-28 03:23 | NUR ---
ASSUMED CARE AT 1930. PATIENT RESTING IN BED. TAKES PILLS WHOLE WITH VANILLA PUDDING. UP WITH MAX ASSIST. UP WITH TWO FOR SAFETY AND PATIENT WAS VERY SCARED TO GET UP. C/O NAUSEA THROUGH DAY. NO BM FOR A FEW DAYS, GIVEN MAG CITRATE ON PREVIOUS FLOOR PRIOR TO ADMISSION TO REHAB. NO RESULTS. ABD VERY DISTENDED AND HARD. PATIENT WAS PASSING GAS. GIVEN SUPPOSITORY PER ORDER. SOME STOOL NOTED IN RECTUM WHILE INSERTING SUPPOSITORY, BUT DIFFICULT TO REMOVE. DID HAVE RESULTS OF MOD AMT OF VERY HARD STOOL PER BSC. PATIENT WANTED THIS NURSE TO REMOVE STOOL BUT UNABLE. AFTER PASSING STOOL AND GAS, ABD SOFTER YET STILL DISTENDED. VOIDED PER BEDPAN AT BEGINNING OF STAIN SPRAYER, BUT NOW REFUSES TO USE BSC IT CAUSED HER PAIN EARLIER. INSTRUCTED OF GOAL OF REHAB IS TO AVOID BEDPANS WHERE POSSIBLE. CALL LITE IN REACH. BED ALARM ON. HOURLY ROUNDS CONTINUE.
[2019-11-28 04:55] LABS: HEMATOCRIT 23.6 % (37.0-47.0); HEMOGLOBIN 7.7 gm/dL (12.0-15.0); MCH 26.5 pg (26.0-34.0); MCHC 32.7 g/dL (28.0-37.0); MCV 80.9 fL (80.0-100.0); MPV 7.5 fl. (7.2-11.1); RBC 2.91 mil/uL (4.20-5.00); RDW-CV 14.8 % (10.5-14.5); WBC 8.1 thou/uL (4.0-11.0)
[2019-11-28 05:21] LABS: CALCIUM 8.5 mg/dL (8.5-10.1); CREATININE 0.9 mg/dL (0.6-1.3); POTASSIUM 4.3 mmol/L (3.5-5.1)
--- NOTE | 2019-11-28 05:49 | NUR ---
SLEEPING AFTER ABOUT 0300. ASSISTED WITH TURNS. DRESSING C/D/I. NO FURTHER C/O PAIN. HOURLY ROUNDS CONTINUE. CALL LITE IN REACH. BED ALARM ON.
[2019-11-28 09:25] VITALS: BP 122/41
--- NOTE | 2019-11-28 10:26 | NUR ---
Nutrition: RD saw pt on other unit. Now admitted to rehab. Pt likes strawberry Ensure with BKFSTS - RD will order. Albumin 3.5. Eating 75% of meals. Wt is stable, 105#. Physician indicated moderate PCM - defer DX. Heart Healthy diet. Mild risk. Will follow weekly.
--- NOTE | 2019-11-28 15:57 | NUR ---
ASSUMMED CARE OF PT AT 0730, PT ALERT, FORGETFUL, TRANSFERS WITH MAX ASSIST OF 1, NEEDS CUEING FOR 50% WEIGHT BEAR STATUS, MOVES SLOW, UP IN CHAIR AND USED COMMODE, C/O PAIN IN NECK, STATES HIP DOES NOT BOTHER HER MUCH, MEDICATED FOR HER NECK PAIN, NEEDS ENCOURAGEMENT TO EAT AND DRINK, ABDOMEN FIRM, NO STOOL OUT, PT REFUSED SUPPOSITORY OR ENEMA, EDUCATED PT, PT STATED SHE WILL TAKE MORE MEDICATION IF SHE DOES NOT HAVE FURTHER STOOL OUT TODAY, TAKES MEDS WHOLE IN PUDDING, PT SATS OF 99% ON 2L, O2 REMOVED AND PT SATS 92%, PT DOES STATE SHE WEARS 02 AT NIGHT AT HOME, DRESSING TO RIGHT HIP C/D/I. REPOSITIONED, PARTICIPATED IN ALL THERAPIES, HOURLY ROUNDING COMPLETED, ASSESSMENT COMPLETE, WILL CONTINUE TO MONITOR.
[2019-11-28 20:05] VITALS: BP 126/36
--- NOTE | 2019-11-28 22:52 | NUR ---
ASSUMED CARE AT 1930. PATIENT RESTING IN BED AT BEGINNING OF SHIFT. COOPERATING WITH KEEPING OFF HER BACK. MEDICATED FOR PAIN AT HS. INSTRUCTED THAT PAIN MED IS ORDERED PRN, AND SHE HAS TO ASK FOR IT. PAIN IS MAINLY IN NECK, AND HER HIP ONLY HURTS WHEN SHE MOVES IT. VERBALIZED UNDERSTANDING. TAKES PILLS WHILE WITH VANILLA PUDDING. O2 2L/NC. DRESSING TO LT HIP C/D/I. NO FURTHER BMS THUS FAR, DID TAKE LAXATIVE/STOOL SOFTENERS ORDERED. HOURLY ROUNDS CONTINUE. BED ALARM ON. CALL LITE IN REACH.
--- NOTE | 2019-11-29 05:55 | NUR ---
SLEPT MOST OF THE NIGHT, VERY SOUNDLY. AWAKE AT ABOUT 0545. WATCHING TV. DENIES PAIN AT THIS TIME. DENIES NEED TO VOID, DESPITE ENCOURAGEMENT. TAKES PILLS WITH VANILLA PUDDING. HOURLY ROUNDS CONTINUE. BED ALARM ON. CALL LITE IN REACH.
[2019-11-29 08:25] VITALS: BP 125/58
[2019-11-29 19:15] VITALS: BP 128/69
--- NOTE | 2019-11-29 22:28 | NUR ---
ASSUMED CARE AT 1930. PATIENT RESTING IN BED. TURNS SELF. O2 2L/NC. DENIES PAIN AT THIS TIME. TAKES PILLS WHOLE WITH VANILLA PUDDING. REPOSITIONS SELF. DRESSING TO LT HIP C/D/I. C/O ITCHING, WHICH IS LONG STANDING. WAS ON BENADRYL ON ACUTE FLOOR. DR. CARMONA NOTIFIED, AND ORDERED BENADRYL WITH CAUTION TO OBSERVE FOR SEDATION AND CONSTIPATION. PATIENT INFORMED OF SAME. PATIENT IS ON SENOKOT AND COLACE. FLUIDS ENCOURAGED. HOURLY ROUNDS CONTINUE. BED ALARM ON. CALL LITE IN REACH.
--- NOTE | 2019-11-30 05:05 | NUR ---
SLEPT MOST OF THE NIGHT. DID VOID ONCE PER BSC, VERY CONCENTRATED. ENCOURAGED FLUID INTAKE, PATIENT RESPONDED, "I DON'T WANT TO HAVE TO GET UP TO PEE." INSTRUCTED IN NEED TO TAKE FLUIDS TO KEEP KIDNEYS FUNCTIONING AND ALLOW STOOL SOFTENERS ENOUGH FLUID TO DO THEIR JOB. MEDICATED FOR NECK PAIN. STATES THAT WHEN SHE IS IN THE BED, HER NECK DOES NOT HURT, BUT WHEN UP IT DOES. LT HIP NOT PAINFUL. HOURLY ROUNDS CONTINUE. BED ALARM ON. CALL LITE IN REACH.
[2019-11-30 07:52] VITALS: BP 123/49
--- NOTE | 2019-11-30 16:43 | NUR ---
Initial inpt rehab assessment: Pt lives at home with dtr. Pt has hx of HH services with [facility]. Pt has cane, RW, nebulizer, inhaler, oxygen at home. SW to continue to follow to discuss recommendations and provide updates to pt family as well as assist with safe dc planning.
--- NOTE | 2019-11-30 17:18 | NUR ---
PT A&OX3 VSS. PT REQUESTS PAIN PILLS FOR C/O CHRONIC PAIN. THERAPY REQUESTS DECREASE OR CHANGE OF MEDICATION FOR PT TO REMAIN CLEAR FOR THERAPIES. PT UP W/ GAIT BELT AND WALKER. PT 50%WB TO LLE. PT ON 2L O2 BY NASAL CANNULA. PT TAKES PILLS WHOLE IN VANILLA PUDDING. PT UP TO RECLINER FOR MEALS. PT RESTS IN ROOM WITH CALL LIGHT IN REACH, WILL CONTINUE TO MONITOR.
[2019-11-30 20:00] VITALS: BP 131/61
--- NOTE | 2019-12-01 05:21 | NUR ---
ASSUMED CARES AT 1920. ALERT AND ORIENTED. PLEASANT. C/O PAIN TO LEFT HIP/LEG. PAIN MEDS GIVEN. O2 2L NC. PILLS WHOLE IN PUDDING. DRESSING TO LEFT HIP C/D/I. MIN ASSIST WITH GAIT BELT AND WALKER. UP TO BATHROOM. NEEDS REMINDING TO PUT 50% WT BEARING TO LLE. SLEPT MOST OF THE NIGHT. CALL LIGHT IN REACH AND BED ALARM ON.
[2019-12-01 08:10] VITALS: BP 172/64
--- NOTE | 2019-12-01 17:04 | NUR ---
PT A&OX3 VSS. USING 1 PRN HYDROCODONE OR TYLENOL FOR PT PAIN MGMNT TO AVOID MAKING HER TOO SLEEPY DURING THERAPY SESSIONS. PT TAKES PILLS WHOLE IN VANILLA POUDDING WITH NO DIFFICULTY SWALLOWING. DRESSING TO L HIP C/D/I. PT UP ASSIST X1 W/GAIT BELT AND WALKER. PT IS 50% WB TO LLE. PER RT PT ON ROOM AIR DURING DAY, AND 2L O2 HS. L;IDOCAINE PATCH ORDERED FOR PT C/O CHRONIC NECK PAIN. PT UP TO RECLINER THIS SHIFT. PT RESTING IN ROOM AT THIS TIME WITH CALL LIGHT IN REACH. WILL CONTINUE TO MONITOR.
[2019-12-01 19:50] VITALS: BP 144/49
--- NOTE | 2019-12-02 05:13 | NUR ---
ASSUMED CARES AT 1920. ALERT AND ORIENTED. PLEASANT. DENIED NEED FOR PAIN MED. 02 2L NC AT NIGHT. DRESSING TO LEFT HIP IN PLACE. MIN ASSIST WITH GAIT BELT AND WALKER. UP TO BATHROOM. SLEPT WELL.
[2019-12-02 08:00] VITALS: BP 159/59
--- NOTE | 2019-12-02 16:20 | NUR ---
AM ASSESSMENT AND VITAL SIGNS COMPLETED DOCUMENTED. PT IS MIN ASSIST WITH TRANSFERS BUT NEEDS CUES TO MAINTAIN 50% WEIGHT BEARING STATUS. DRESSING TO HIP REMAINS C/D/I. PRN HYDROCODONE GIVEN ONCE DURING THERAPY. PT HAS A GOOD APPETITE AND IS INDEPENDENT WITH MEALS. FALL PRECAUTIONS AND HOURLY ROUNDING CONTINUE.
[2019-12-02 20:09] VITALS: BP 133/66
--- NOTE | 2019-12-03 05:14 | NUR ---
ASSUMED CARES AT 1920. ALERT AND ORIENTED. PLEASANT. C/O PAIN TO LEFT LEG. PAIN MEDS GIVEN. PILLS WHOLE WITH VANILLA PUDDING. MIN ASSIST WITH GAIT BELT AND WALKER. UP TO BATHROOM. LEFT HIP DRSG IN PLACE. O2 2L NC AT NIGHT. CALL LIGHT IN REACH AND BED ALARM ON.
[2019-12-03 07:16] VITALS: BP 130/67
--- NOTE | 2019-12-03 12:45 | NUR ---
SW called and spoke with pt dtr Coco to review team conference summary and plan for pt to remain on rehab unit another week with team to reassess pt length of stay during team conference next Saturday. Pt dtr hopeful for pt to dc by next week and said that she spoke with Dr Hummel about probability that pt may be ready by next week. Pt dtr concerned with pt exposure to possible COVID over time and would feel better with pt home as soon as possible. SW asked about level of care available at home. Pt dtr explained that pt dtr is a nurse case making machine operator at [employer] and she is working remotely at the moment and would be able to provide care. Pt dtr said that when she returns to work, 15yo dtr is available to assist as well as an older dtr who is a teacher and could assist at home at times if needed. SW to continue to follow to assist with safe dc planning.
--- NOTE | 2019-12-03 18:13 | NUR ---
PATIENT RESTING UP IN CHAIR. PATIENT IS UP WITH ASSIST OF 1 WITH GAIT BELT AND WALKER. PATIENT HAD COMPLAINTS OF PAIN TO LEFT HIP THIS AM, WITH ADEQUATE RELIEF PROVIDED WITH HYDROCODONE. PATIENT DENIES ANY PAIN AT THIS TIME. PATIENT WORKED WITH THERAPIES TODAY. PATIENT HAS FAIR APPETITE. PATIENT DENIES ANY NEEDS AT THIS TIME. CALL LIGHT WITHIN REACH.
[2019-12-03 19:50] VITALS: BP 144/62
--- NOTE | 2019-12-04 04:16 | NUR ---
ASSUMED CARE OF PT 12/03/19 AT APPROX 1930. PT A&OX4, PT ON ROOM AIR WHEN AWAKE - 2L NC WHEN SLEEPING, 50% WEIGHT BEARING LIMIT MAINTAINED TO LLE. PAIN MEDS REQUESTED AND GIVEN ORDERED. ASSESSMENTS AND HOURLY ROUNDINGS COMPLETE, WILL CONTINUE TO MONITOR.
[2019-12-04 04:53] LABS: HEMATOCRIT 21.9 % (37.0-47.0); HEMOGLOBIN 7.1 gm/dL (12.0-15.0); MCH 26.6 pg (26.0-34.0); MCHC 32.6 g/dL (28.0-37.0); MCV 81.7 fL (80.0-100.0); MPV 6.7 fl. (7.2-11.1); NUCLEATED RBCS 0 /100WBC; PLATELET COUNT* 269 thou/uL (150-400); RBC 2.68 mil/uL (4.20-5.00); WBC 6.6 thou/uL (4.0-11.0)
[2019-12-04 05:17] LABS: % SATURATION 13 % (20-39); IRON 32 ug/dL (50-175)
[2019-12-04 05:51] LABS: CALCIUM 7.9 mg/dL (8.5-10.1); CREATININE 0.9 mg/dL (0.6-1.3); PHOSPHORUS* 3.9 mg/dL (2.5-4.9); POTASSIUM 3.9 mmol/L (3.5-5.1)
[2019-12-04 06:27] LABS: ABSOLUTE BASOPHILS 0.3 thou/uL (0.0-0.2); ABSOLUTE EOSINOPHILS 0.1 thou/uL (0.0-0.7); ABSOLUTE LYMPHOCYTES 1.7 thou/uL (0.8-5.3); ABSOLUTE NEUTROPHILS 4.5 thou/uL (1.6-8.1); ANISOCYTOSIS 1+; ATYPICAL LYMPHS 1 %; METAMYELOCYTES 5 %; PLATELET ESTIMATE ADEQUATE
[2019-12-04 07:57] VITALS: BP 158/79
--- NOTE | 2019-12-04 19:02 | NUR ---
PATIENT RESTING IN BED. PATIENT IS UP WITH STANDBY ASSIST WITH WALKER TO BARTHROOM. PATIENT HAS COMPLAINTS OF PAIN, TREATED ADEQUATELY WITH MEDICATION. PATIENT HAS GOOD APPETITE. BOWEL MOVEMENT TODAY, OCCULT BLOOD NEGATIVE. PATIENT DENIES ANY NEEDS AT THIS TIME. CALL LIGHT WITHIN REACH.
[2019-12-04 20:18] VITALS: BP 150/81
[2019-12-05 04:29] LABS: HEMATOCRIT 24.2 % (37.0-47.0); MCH 27.3 pg (26.0-34.0); MCV 82.7 fL (80.0-100.0); MPV 6.8 fl. (7.2-11.1); RBC 2.92 mil/uL (4.20-5.00); WBC 9.1 thou/uL (4.0-11.0)
--- NOTE | 2019-12-05 05:36 | NUR ---
PT SLEPT WELL THIS SHIFT. MEDS GIVEN PER EMAR. PT UP TO BSC VIA WALKER AND GAIT BELT ON STB ASSIST. PT DENIED PAIN THIS SHIFT. CALL LIGHT WITHIN REACH. HOURLY ROUNDINGS MADE. WILL CONTINUE TO MONITOR.
[2019-12-05 09:15] VITALS: BP 172/71
--- NOTE | 2019-12-05 16:57 | NUR ---
ALERT AND ORIENTED X4. UP WITH 1 ASSIST, GAIT BELT AND WALKER. USES PAIN PATCH AND PO PAIN MEDICATION WHICH PATIENT STATED IS HELPFUL. C/O FEELING REALLY TIRED THIS AFTERNOON. V/S CHECKED AND V/S CHECKED AND WITHIN NORMAL LIMITS. SCRATCHES DRY AND HEALING ON EXTREMITIES. REMAINS ON O2 AT 2L/NC. TAKES PILLS WITH PUDDING WITHOUT DIFFICULTY. USES CALL LIGHT WITHIN REACH. FALL PRECAUTIONS IN PLACE. BED AND CHAIR ALARMS USED.
[2019-12-05 20:29] VITALS: BP 156/59
--- NOTE | 2019-12-06 06:22 | NUR ---
PT ALERT AND ORIENTED. VSS ON 2L. MEDS GIVEN PER EMAR. PT DENIED PAIN, N/V THIS SHIFT. PT REFUSED SKIN CREAM THIS SHIFT. NO BM NOTED THIS SHIFT. PT SLEPT WELL THIS SHIFT. CALL LIGHT WITHIN REACH. HOURLY ROUNDINGS MADE. WILL CONTINUE TO MONITOR.
[2019-12-06 08:00] VITALS: BP 192/69
--- NOTE | 2019-12-06 17:40 | NUR ---
ALERT AND ORIENTED X4. UP WITH STAND BY ASSIST, GAIT BELT AND WALKER. CONTINENT OF BOWEL AND BLADDER. PO PAIN MEDICATION HELPFUL WITH PAIN. USES PAIN PATCH FOR NECK PAIN. REMAINS ON O2 AT 2L/NC TO KEEP O2 SAT IN 90%. SCRATCHES DRY AND HEALING ON EXTREMITIES. REMAINS 50% WEIGHTBEARING TO LEFT LEG. USES CALL LIGHT WHEN NEEDING ASSIST. FALL PRECAUTIONS IN PLACE. BED ALARM AND CHAIR ALARM USED.
[2019-12-06 18:00] VITALS: BP 139/49
[2019-12-06 20:00] VITALS: BP 135/67
--- NOTE | 2019-12-06 23:20 | NUR ---
NESHA KUMARI MRS STEVEN HAS BEEN REFUSING BREATHING TXS FOR PAST COUPLE OF DAYS STATING THAT THEY MAKE HER MOUTH VERY SORE. IT IS ONLY DUONEB QID. CAN WE CHANGE THEM TO PRN PLEASE. THANKS RT
--- NOTE | 2019-12-07 05:15 | NUR ---
ASSUMED CARES AT 1920. ALERT AND ORIENTED. PLEASANT. O2 2L NC. MIN ASSIST WITH GAIT BELT AND WALKER. UP TO BATHROOM. DENIED ANY NEED FOR PAIN MEDS. TAKES PILLS WITH PUDDING. PT REQUESTED ATARAX FOR ITCHINESS. SALINE LOCK TO LEFT FA. NO ISSUES OVERNIGHT. CALL LIGHT IN REACH AND BED ALARM ON
[2019-12-07 06:43] LABS: HEMATOCRIT 25.1 % (37.0-47.0); HEMOGLOBIN 8.3 gm/dL (12.0-15.0); MCH 27.3 pg (26.0-34.0); MCHC 32.9 g/dL (28.0-37.0); MCV 82.9 fL (80.0-100.0); MPV 7.1 fl. (7.2-11.1); RBC 3.03 mil/uL (4.20-5.00); WBC 9.5 thou/uL (4.0-11.0)
[2019-12-07 06:45] LABS: CALCIUM 7.8 mg/dL (8.5-10.1); CREATININE 0.9 mg/dL (0.6-1.3); MAGNESIUM 1.9 mg/dL (1.8-2.4); POTASSIUM 3.8 mmol/L (3.5-5.1)
[2019-12-07 08:56] VITALS: BP 147/71
--- NOTE | 2019-12-07 18:10 | NUR ---
ALERT AND ORIENTED X4. UP WITH STAND BY ASSIST, GAIT BELT AND WALKER. USING PO PAIN MEDICATION AND PAIN PATCH TO HELP WITH PAIN. C/O HEADACHE TODAY AND NEW MEDICATION ORDER RECEIVED AND GIVEN TO PATIENT. DRESSING LEFT HIP DRY AND INTACT. SCRATCHES HEALING AND DRY ON EXTREMITIES. REMAINS 50% WEIGHTBEARING TO LEFT LEG. USES CALL LIGHT WITHIN REACH. FALL PRECAUTIONS IN PLACE. BED ALARM AND CHAIR ALARM USED.
[2019-12-07 19:15] VITALS: BP 131/69
--- NOTE | 2019-12-08 01:54 | NUR ---
ASSUMED CARE AT 1930. PATIENT RESTING IN BED. TURNS SELF. O2 2L/NC. NO FURTHER C/O HEADACHE. SCRATCHES TO LEGS HEALING, GIVEN ATARAX AT HS PER ORDER, WHICH IS HOME ROUTINE. DRESSING TO LT HIP C/D/I. WT BEARING TO LT LEG 50%. REFUSED MIDNIGHT DOSE OF MAGIC MOUTHWASH. HOURLY ROUNDS CONTINUE. BED ALARM ON. CALL LITE IN REACH.
--- NOTE | 2019-12-08 05:31 | NUR ---
SLEPT THROUGH THE NIGHT. NO FURTHER C/O. TURNS SELF. HOURLY ROUNDS CONTINUE. BED ALARM ON. CALL LITE IN REACH.
[2019-12-08 08:00] VITALS: BP 158/70
--- NOTE | 2019-12-08 16:14 | NUR ---
PT A&Ox4. VITALS STABLE. DRESSING C/D/I. DENIED PAIN. DENIED N/V. TOLERATING DIET. UP WITH 1 STAND BY. FALL PRECAUTIONS IN PLACE. CALL LIGHT WITHIN REACH. WILL CONTINUE TO MONITOR.
[2019-12-08 19:15] VITALS: BP 130/58
--- NOTE | 2019-12-08 21:05 | NUR ---
RESTING QUIETLY IN BED. DENIES PAIN. 02 NASAL CANNLA PLACED AT TWO LITERS. CALL LIGHT WIHIN REACH. TOOK MEDICAITONS WHOLE WITH VANILLA PUDDING.
--- NOTE | 2019-12-09 04:43 | NUR ---
RESTED QUIETLY. TURNS SELF. HOURLY ROUNDING IN PROGRESS.
[2019-12-09 09:34] VITALS: BP 149/62
--- NOTE | 2019-12-09 12:47 | NUR ---
Nutrition: Pt not eating well. She said she misses her daughter's cooking. Noted <25% of lunch meal eaten today. Wt is stable. She is refusing the Ensures - they make her sick to her stomach. RD will d/c Ensures. Pt stated "I'm fine, honey." She doesn't want oral supplements. Mild to moderate risk. Will continue to follow weekly.
--- NOTE | 2019-12-09 16:16 | NUR ---
PT A&Ox4. VITALS STABLE. NO PAIN. TOLERATING DIET. UP WITH 1 STAND BY. FALL PRECAUTIONS IN PLACE. CALL LIGHT WITHIN REACH. WILL CONTINUE TO MONITOR.
--- NOTE | 2019-12-09 16:22 | NUR ---
SW called and spoke with pt dtr Coco to review team conference summary and plan for pt to dc home with family on Saturday and offered family training at least with OT. Pt dtr said that pt had called pt dtr and said that she hoped she could dc home on . Pt dtr said that Saturday dc will be fine with her schedule though and that she will come in for family training on Sunday 12/10 at 2 pm. HH services to be arranged with pt preference of [facility]. SW discussed DME, pt dtr explained they moved pt upstairs to one level and have a shower bench, already have RW, and know that they might purchase a wc on their own as pt does not qualify for a wc through insurance at this time. SW to continue to follow to assist with safe dc planning.
[2019-12-09 19:00] VITALS: BP 142/42
--- NOTE | 2019-12-10 02:20 | NUR ---
ASSUMED CARE @ 1943-.SDITS IN W/C @ BEDSIDE WATCHING TV.CHAIR ALARM ALREADY ON @ 1943.HOB UP IN BED.BED ALARM PUT ON @ 2129.REFUSED TO DO IS & EUCERIN CREAM & MAGIC MOUTH WASH.O2 2L/NC PUT ON @ 2129 FOR NIGHT USE.50 % WB LEFT LE FOR TRANSFERS & AMBULATION.TURNS SELF @ NIGHT.ON HOURLY ROUNDS. 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
--- NOTE | 2019-12-10 05:15 | NUR ---
SLEEPING SINCE 2200 & SLEPT GOOD ALL NIGHT.BRP W/ ASSIST X1.TOOK VANILLA PUDDING W/ HS MEDS.
[2019-12-10 08:00] VITALS: BP 173/87
--- NOTE | 2019-12-10 16:18 | NUR ---
ASSUMMED CARE OF PT AT 0730, PT ALERT AND ORIENTED, PT TRANSFERS WITH SBA, GB WALKER, C/O PAIN IN LOW BACK THIS AM AND HEADACHE THIS PM, DRSG D/I, AMBULATES TO BATHROOM TO VOID, NO BM THIS SHIFT, TAKES PILLS WHOLE WITH PUDDING, NEEDS ENCOURAGEMENT TO TAKE FOOD AND FLUIDS, PARTICIPATED IN ALL THERAPY, HOURLY ROUNDING COMPLETED, ASSESSMENT COMPLETE, WILL CONTINUE TO MONITOR.
[2019-12-10 20:00] VITALS: BP 142/93
--- NOTE | 2019-12-11 06:38 | NUR ---
PT SLEPT WELL THIS SHIFT. VSS ON RA. PT TOOK MEDS WITH VANILLA PUDDING. PT DENIES PAIN THIS SHIFT. PT AMBULATES TO BATHROOM VIA WALKER AND GAIT BELT ON STB ASSIST. FALL PRECAUTION IN PLACE. ANTICIPATED DC TO HOME TODAY. WILL CONTINUE TO MONITOR.
[2019-12-11 07:00] VITALS: BP 170/76
[2019-12-11 11:42] VITALS: BP 170/72
[2019-12-11] MEDS ORDERED: ASPIRIN325 PO (12:48)
[2019-12-11] MEDS ORDERED: CLOTRIMAZOLE10 MG DISSOLVE (13:36)
[2019-12-11] MEDS ORDERED: IRON325 M1 PO (13:40)
[2019-12-11] MEDS ORDERED: LISINOPRIL2.5 MG PO (13:42)
[2019-12-11] MEDS ORDERED: SIMETHICON CHEW80 M1 PO (13:43)
[2019-12-11] MEDS ORDERED: LIDODERM1 EACH TOP (13:50)
--- NOTE | 2019-12-11 14:10 | NUR ---
ASSUMMED CARE OF PT [id number], PT ALERT AND ORIENTED, PT AMBULATES TO BATHROOM TO VOID, PT C/O LOW BACK PAIN AND HEADACHE, MEDICATED PER ORDER, TAKING FOOD AND FLUIDS WELL, PARTICIPATED IN ALL THERAPIES, HOURLY ROUNDING COMPLETED, ASSESSMENT COMPLETE, ORDERS OBTAINED FOR DISCHARGE, DAUGHTER HERE FOR FAMILY TRAINING, PT AND DAUGHTER GIVEN INSTRUCTIONS ON MEDICATIONS, FOLLOW UP APPTS, HOME HEALTH, DIET, WHEN TO CALL PHYSICIAN, SCRIPTS GIVEN TO DAUGHTER,QUESTIONS ANSWERED, DAUGHTER AND PT STATE UNDERSTANDING OF INSTRUCTIONS, PT TO MAIN ENTRANCE WITH BELONGINGS.
[2019-12-11 14:34] VITALS: BP 170/72
--- NOTE | 2019-12-11 14:39 | NUR ---
Pt to dc home today with family. Pt dtr completing family training and will provide pt ride home. SW arranged HH services to follow with pt/family preference of HH agency [facility] and faxed referral and orders and med list.
[2019-12-11 14:56] VITALS: BP 170/72
== END 2019-12-11 15:10 | disposition home health service (06) | DRG 535 ==
LOC: M.REH 15:59
PROVIDERS: Family Medicine; Internal Medicine; ADMIT Physical Medicine & Rehabilitation
DX: S72.142A Displaced intertrochanteric fracture of left femur, initial encounter for closed fracture (principal); E43 Unspecified severe protein-calorie malnutrition; I50.42 Chronic combined systolic (congestive) and diastolic (congestive) heart failure; D62 Acute posthemorrhagic anemia; J96.10 Chronic respiratory failure, unspecified whether with hypoxia or hypercapnia; Z68.1 Body mass index [BMI] 19.9 or less, adult; J43.9 Emphysema, unspecified; I48.91 Unspecified atrial fibrillation; I11.0 Hypertensive heart disease with heart failure; W18.39XA Other fall on same level, initial encounter; Y93.89 Activity, other specified; Y92.89 Other specified places as the place of occurrence of the external cause; Y99.8 Other external cause status; Z79.82 Long term (current) use of aspirin; Z79.899 Other long term (current) drug therapy

== ENCOUNTER → 2020-01-21 | Outpatient (CLI) | payer OTHER ==
[~2020-01-21] MED LIST changes: +ALBUTEROL2.5 MG/0.5 INH; +ASPIRIN325 PO; +CLOTRIMAZOLE10 MG DISSOLVE; +IRON325 M1 PO; +LIDODERM1 EACH TOP; +LISINOPRIL2.5 MG PO; +SIMETHICON CHEW80 M1 PO
== END ==
LOC: M.RAD 10:34
PROVIDERS: ATTEND Family Medicine
DX: M85.88 Other specified disorders of bone density and structure, other site (principal)

== ENCOUNTER 2020-08-18 19:04 | Inpatient (IN) | payer OTHER ==
[~2020-08-18] VITALS: Ht 165.1 cm; Wt 45.8 kg
[~2020-08-18 19:04] MED LIST changes: +CARDIZEM CD 18180 M3 PO; -CARDIZEM CD240 MG PO
[2020-08-18 19:37] VITALS: BP 147/61
[2020-08-18 20:24] LABS: HEMATOCRIT 38.2 % (37.0-47.0); HEMOGLOBIN 12.7 gm/dL (12.0-15.0); MCH 28.9 pg (26.0-34.0); MCHC 33.1 g/dL (28.0-37.0); MCV 87.2 fL (80.0-100.0); MPV 7.5 fl. (7.2-11.1); NUCLEATED RBCS 0 /100WBC; PLATELET COUNT* 202 thou/uL (150-400); RBC 4.39 mil/uL (4.20-5.00); RDW-CV 13.6 % (10.5-14.5); WBC 11.6 thou/uL (4.0-11.0)
[2020-08-18 20:32] LABS: INFLUENZA A ANTIGEN Negative (Negative); INFLUENZA B ANTIGEN Negative (Negative)
[2020-08-18 20:34] LABS: PROTIME 10.7 Seconds (9.20-11.50)
[2020-08-18 20:35] LABS: CALCIUM 8.7 mg/dL (8.5-10.1); CREATININE 0.9 mg/dL (0.6-1.3); POTASSIUM 3.8 mmol/L (3.5-5.1)
[2020-08-18 20:45] LABS: ALBUMIN 3.5 g/dL (3.4-5.0); MAGNESIUM 2.4 mg/dL (1.8-2.4); TOTAL BILIRUBIN 1.2 mg/dL (<0.1-1.0); TOTAL PROTEIN 6.8 g/dL (6.4-8.2)
[2020-08-18 20:53] LABS: ABSOLUTE EOSINOPHILS 0.2 thou/uL (0.0-0.7); ABSOLUTE MONOCYTES 0.7 thou/uL (0.0-1.2); ABSOLUTE NEUTROPHILS 9.6 thou/uL (1.6-8.1)
[2020-08-18 20:54] LABS: PLATELET ESTIMATE ADEQUATE
[2020-08-18 21:52] LABS: URINE BILIRUBIN NEGATIVE (Negative); URINE BLOOD TRACE (Negative); URINE CLARITY CLEAR; URINE COLOR YELLOW; URINE GLUCOSE-RANDOM NEGATIVE (Negative); URINE KETONES NEGATIVE (Negative); URINE LEUKOCYTES-REFLEX TRACE (Negative); URINE NITRITE-REFLEX NEGATIVE (Negative); URINE PROTEIN NEGATIVE (Negative)
[2020-08-18 22:00] LABS: SQUAMOUS >10 Many /LPF (0-3)
[2020-08-18 22:01] LABS: BACTERIA-REFLEX 1-9 Few /HPF (None Seen); CASTS None Seen /LPF (None Seen); CRYSTALS None Seen /LPF (None Seen); MUCUS None Seen strn/LPF (None Seen); URINE RBC 0-2 Rare /HPF (0-2); URINE WBC-REFLEX 0-5 Rare /HPF (0-5)
[2020-08-18 22:10] VITALS: BP 146/69
[2020-08-18 22:30] VITALS: BP 158/79
[2020-08-19 05:01] VITALS: BP 140/62
[2020-08-19 08:00] VITALS: BP 136/60
[2020-08-19 08:53] LABS: CALCIUM 8.1 mg/dL (8.5-10.1); CREATININE 0.9 mg/dL (0.6-1.3); POTASSIUM 4.1 mmol/L (3.5-5.1)
[2020-08-19 09:00] LABS: MAGNESIUM 2.1 mg/dL (1.8-2.4); PHOSPHORUS* 4.1 mg/dL (2.5-4.9)
[2020-08-19 09:06] LABS: TOTAL BILIRUBIN 0.8 mg/dL (<0.1-1.0)
[2020-08-19 09:07] LABS: DIRECT BILIRUBIN 0.5 mg/dL (<0.1-0.3)
[2020-08-19 12:00] VITALS: BP 129/76
--- NOTE | 2020-08-19 12:10 | EKG ---
[place] [address] ELECTROCARDIOGRAM REPORT Name: LAMONT STEVEN Room: [address] ADM [place] .R.#: [id number] Admission: 08/18/20 Attend Phys: Edgar Osuna Discharge: Date of : 36 Date of Service: 08/18/202014 Report #: [id number] THIS REPORT FOR: //name// [facility] ED Test Date: 2020-08-18 Test Time: 20:15:03 Pat Name: LAMONT STEVEN Department: Room: [facility] Gender: F Supervisor Pumping: NIKKI : 1940 Requested By: Beatris Palomares Order Number: [id number] MD: Red Rodriguez Measurements Intervals Mozelle Rate: 64 P: 58 ND: 169 QRS: -75 QRSD: 102 T: 244 QT: 566 QTc: 584 Interpretive Statements Sinus arrhythmia Incomplete RBBB and LAFB Abnormal R-wave progression, early transition Nonspecific T abnormalities, lateral leads Prolonged QT interval Compared to ECG 11/23/2019 14:19:25 T-wave abnormality still present Electronically Signed On 08-19-2020 12:10:42 TERRAZZO MECHANIC by Red Rodriguez [email or web address] <ELECTRONICALLY SIGNED> By: Red Rodriguez MD, FACC 08/19/20 1210 14 14 Red Rodriguez MD, [facility] /EPI
--- NOTE | 2020-08-19 13:19 | NUR ---
Pt is A&O. Resides at home with her dtr. Pt states she is normally independent. Pt has a walker and cane at home that she can use for mobility, Pt states that she normally uses her walker. Pt wears home o2 at [facility] only at 2L. Hx of [facility]. Hx of ARU. No hx of SNF. GI following, may need ERCP. M/S. Anticipate dc in a few days. Following for dc needs, Pt does not anticipate having any needs.
[2020-08-19 20:00] VITALS: BP 163/73
[2020-08-20] VITALS: BP 160/78
[2020-08-20 02:06] LABS: HEPATITIS B SURFACE AG Negative (Negative)
--- NOTE | 2020-08-20 04:06 | NUR ---
PT ALERT ORIENTED. UP WITH ASSIT TO BSC. ABD FIRM DISTENDED. SCANT AMT OF KAREN LORENZ EMESIS. PT BELCHING. NG TO LIS PLACED. PLACEMENT CONFIRMED BY XRAY. KAREN LORENZ IN TUBING. GLYCERIN SUPP GIVEN. PT HAD ONE MED BM. PT STATES SHE FEELS BETTER NOW THAN FROM INITAL ASSESSMENT. HYDROMORPHONE AND ZOFRAN FOR PAIN AND NAUSIA. INITAL O2 SAT 85% O2 AT 2 LITERS NC. RESTING QUIETLY WITH EYES CLOSED. ABD IS SOFTER NOW THAN INITAL ASSESSMENT.
[2020-08-20 04:38] LABS: HEMATOCRIT 36.5 % (37.0-47.0); HEMOGLOBIN 12.1 gm/dL (12.0-15.0); MCH 29.2 pg (26.0-34.0); MCHC 33.2 g/dL (28.0-37.0); MCV 87.9 fL (80.0-100.0); RBC 4.15 mil/uL (4.20-5.00); RDW-CV 13.8 % (10.5-14.5); WBC 8.6 thou/uL (4.0-11.0)
[2020-08-20 05:07] LABS: ALBUMIN 3.1 g/dL (3.4-5.0); CALCIUM 8.6 mg/dL (8.5-10.1); CREATININE 0.7 mg/dL (0.6-1.3); POTASSIUM 3.9 mmol/L (3.5-5.1); TOTAL BILIRUBIN 0.6 mg/dL (<0.1-1.0); TOTAL PROTEIN 6.1 g/dL (6.4-8.2)
[2020-08-20 08:04] VITALS: BP 187/77
--- NOTE | 2020-08-20 10:02 | NUR ---
ASSUMED CARE OF PT THIS AM AROUND 0715- M/S STATUS IN PLACE- UPON ASSESSMENT PT NOTED TO BED RESTING IN BED- PT A&O X4- CONT OF B/B- ASSIST X1 WITH TRANSFERS- LCTA, DYSPNEA NOTED ON EXERTION- VSS, O2 SAT 92% ON RA- ABD SOFT/DISTENDED/NON-TENDER, BS X4 QUADS- LAST BM REPORTED 08/19/19- IV NOTED TO LEFT UE INTACT, IVF INFUSSING PRESCIBED- NG NOTED IN PLACE LIS IN PLACE WITH MIN OUTPUT NOTED IN TUBBING, AND NO NEW THIS AM- GI HERE TO ASSESS THIS AM WITH OKAY NOTED TO REMOVE NG TUBE, NG TUBE REMOVED THIS AM AROUND 1000- PRN DILAUDID GIVEN THIS AM AT 0849 PER PT REQUEST R/T BACK PAIN- ERCP PLANNED THIS SHIFT PER GI, PT REMAINS NPO- CALL LIGHT AND PERSONAL BELONGINGS WITH IN REACH- DAUGHTER AT BED SIDE- ALL NEEDS MET AT THIS TIME-WCTM
[2020-08-20 16:00] VITALS: BP 179/64
[2020-08-20 20:00] VITALS: BP 141/60
[2020-08-21 04:21] LABS: ABSOLUTE LYMPHOCYTES 0.5 thou/uL (0.8-5.3); ABSOLUTE MONOCYTES 0.8 thou/uL (0.0-1.2); ABSOLUTE NEUTROPHILS 7.4 thou/uL (1.6-8.1); BASOPHILS 0.1 %; HEMATOCRIT 34.6 % (37.0-47.0); HEMOGLOBIN 11.7 gm/dL (12.0-15.0); LYMPHOCYTES 5.4 %; MCH 29.3 pg (26.0-34.0); MCHC 33.7 g/dL (28.0-37.0); MCV 86.8 fL (80.0-100.0); MONOCYTES 9.3 %; MPV 7.9 fl. (7.2-11.1); NUCLEATED RBCS 0 /100WBC; PLATELET COUNT* 163 thou/uL (150-400); POLYS 85.2 %; RBC 3.99 mil/uL (4.20-5.00); RDW-CV 13.5 % (10.5-14.5); WBC 8.7 thou/uL (4.0-11.0)
[2020-08-21 04:46] LABS: ALBUMIN 2.7 g/dL (3.4-5.0); CALCIUM 7.7 mg/dL (8.5-10.1); CREATININE 0.7 mg/dL (0.6-1.3); POTASSIUM 3.9 mmol/L (3.5-5.1); TOTAL BILIRUBIN 0.5 mg/dL (<0.1-1.0); TOTAL PROTEIN 5.4 g/dL (6.4-8.2)
--- NOTE | 2020-08-21 07:20 | NUR ---
ASSUMED PT CARE AT APPROX 1930. PT IS AWAKE AND ORIENTED X4. PT IS NOT IN DISTRESS, NO DESATURATIONS NOTED ON 3L OF O2/NC. PT C/O BACK PAIN RELIEVED BY PAIN MEDS GIVEN PER MAR. NO ACUTE CHANGES THROUGHOUT THIS SHIFT. CALLL LIGHT WITHIN REACH. HOURLY ROUNDING DONE FOR PT SAFETY. HIGH FALL PRECAUTIONS IN PLACE.
[2020-08-21 08:00] VITALS: BP 133/77
[2020-08-21] MEDS ORDERED: AUGMENTIN 875-1 EACH PO (08:29)
--- NOTE | 2020-08-21 13:00 | NUR ---
ASSUMED CARE OF PT AT 0730. PT RESTING IN BED. A&0X4, PLEASANT, DENIES ANY PAIN OR SHORTNESS OF BREATH AT THIS TIME. PT STATES PAIN MED GIVEN BY NOC SHIFT WAS EFFECTIVE AND SHE WOULD JUST LIKE TO TAKE CELEBREX TODAY AND AVOID IV PAIN MEDICATIONS. CELEBREX GIVEN PER PT REQUEST. PT UP TO RECLINER WHEN DAUGHTER GOT HERE THIS AM-TOLERATED WELL. ORDERS RECEIVED FROM GI TO ADVANCE DIET TO REGULAR AND DISCHARGE PLANNING IF TOLERATES MEALS. LABS TRENDING DOWN. PT CURRENTLY SITTING UP IN THE CHAIR EATING LUNCH AT THIS TIME. DAUGHTER AT BEDSIDE AND UPDATED ON CURRENT PLAN OF CARE. PT MED SURG STATUS. ON 3L NC UPON INITIAL ASSESSMENT SAT 97% PT TITRATED TO RA SAT 93-94%. IVF DISCONTINUED. PT SL. REFER TO EMAR. PT UP WITH 1 ASSIST. PT HAD REPEAT ABDOMINAL XRAY THIS AM TO FOLLOW UP ERCP-REFER TO RESULTS. PT GOAL IS TO TOLERATE REGULAR DIET AND DISCHARGE PLANNING TO HOME. AM ASSESSMENT CHARTED. MEDICATIONS PER OCT. PT REPOSITIONS SELF WITH REMINDERS. HOURLY ROUNDING OBSERVED. BED IN LOW POSITION. CALL LIGHT WITHIN REACH. WILL CONTINUE PLAN OF CARE.
[2020-08-21] MEDS ORDERED: ERYTHROMYCIN250 M1 PO (15:21)
[2020-08-21 15:28] VITALS: BP 133/77
--- NOTE | 2020-08-21 16:36 | NUR ---
PT TOLERATING REGULAR DIET WITH NO NAUSEA OR PAIN. DR MONTOYA HERE TO SEE PT. OK FOR DISCHARGE. ORDERS RECEIVED FOR ERYTHROMYCIN PO. SCRIPT GIVEN TO PT. DISCHARGE ORDERS RECEIVED. DISCHARGE INSTRUCTIONS, CARE NOTES, SCRIPTS AND FOLLOW UP APPTS GIVEN TO PT. PT COMMUNICATES UNDERSTANDING OF DISCHARGE TEACHING. IV REMOVED. PT MED SURG STATUS. PT DISCHARGED WITH ALL BELONGINGS AND PAPERWORK VIA WHEELCHAIR WITH NURSING STAFF TO DAUGHTER OWN PERSONAL VEHICLE.
== END 2020-08-21 16:35 | disposition home or self-care (01) | DRG 444 ==
LOC: M.ERS 19:04 → M.TBA-ER 21:53 → M.2W 21:53
PROVIDERS: Emergency Medicine; Internal Medicine; ADMIT Internal Medicine; ATTEND Internal Medicine
PROC: 0FC98ZZ Extirpation of Matter from Common Bile Duct, Via Natural or Artificial Opening Endoscopic (ICD-10-PCS; principal; 2020-08-20)
DX: K80.51 Calculus of bile duct without cholangitis or cholecystitis with obstruction (principal); E43 Unspecified severe protein-calorie malnutrition; I50.42 Chronic combined systolic (congestive) and diastolic (congestive) heart failure; Z68.1 Body mass index [BMI] 19.9 or less, adult; G89.29 Other chronic pain; J43.9 Emphysema, unspecified; I11.0 Hypertensive heart disease with heart failure; K59.00 Constipation, unspecified; M47.9 Spondylosis, unspecified; R62.7 Adult failure to thrive; K75.9 Inflammatory liver disease, unspecified; Z96.642 Presence of left artificial hip joint; Z20.822 Contact with and (suspected) exposure to COVID-19; Z79.82 Long term (current) use of aspirin; Z79.899 Other long term (current) drug therapy; Z87.891 Personal history of nicotine dependence; Z28.21 Immunization not carried out because of patient refusal

== ENCOUNTER → 2021-02-09 | Outpatient (CLI) | payer OTHER ==
[~2021-02-09] MED LIST changes: +AUGMENTIN 875-1 EACH PO; +ERYTHROMYCIN250 M1 PO
== END ==
LOC: M.CT 13:32
PROVIDERS: ATTEND Family Medicine
DX: N20.0 Calculus of kidney (principal); K31.89 Other diseases of stomach and duodenum; M47.816 Spondylosis without myelopathy or radiculopathy, lumbar region; I70.0 Atherosclerosis of aorta; R91.1 Solitary pulmonary nodule